=== PATIENT | female | born 1955 | race Hispanic/Latino ===

== ENCOUNTER 2018-05-07 20:22 | Observation (INO) | payer MEDICAID ==
--- NOTE | 2018-05-07 21:13 | ED PDOC ---
Arrival/HPI - General Time Seen by Provider: 05/07/18 20:27 Historian: Patient - History of Present Illness Narrative History of Present Illness (Text): 05/07/18 20:45 Nicole Elizalde is a 62 year old female, whose past medical history includes hypertension, who presents to the Emergency Department complaining of episodes of dizziness and near-syncope for the past day. Patient also reports fleeting left-sided chest discomfort, no radiation to arm or back. Patient also denies any headache, neck pain, back pain, visual disturbance, fever, chills, shortness of breath, or any other complaints. Symptom Onset: Gradual Symptom Course: Unchanged Activities at Onset: Light Context: Home Past Medical History - Provider Review Nursing Documentation Reviewed: Yes - Tetanus Immunization Tetanus Immunization: Unknown - Cardiac Hx Cardiac Disorders: Yes Hx Hypertension: Yes - Pulmonary Hx Respiratory Disorders: No - Neurological Hx Neurological Disorder: No Hx Paralysis: No - HEENT Hx HEENT Disorder: No - Renal Hx Renal Disorder: No - Endocrine/Metabolic Hx Endocrine Disorders: No - Hematological/Oncological Hx Blood Disorders: No Hx Blood Transfusions: No Hx Blood Transfusion Reaction: No - Integumentary Hx Dermatological Disorder: No - Musculoskeletal/Rheumatological Hx Musculoskeletal Disorders: Yes Hx Arthritis: Yes (mainly in the spine) Hx Osteoporosis: Yes - Gastrointestinal Hx Gastrointestinal Disorders: Yes Hx Gastroesophageal Reflux: Yes - Psychiatric Hx Anxiety: Yes Hx Substance Use: No - Surgical History Hx Hysterectomy: Yes (1993) Hx Tubal Ligation: Yes - Anesthesia Hx Anesthesia: Yes Hx Anesthesia Reactions: No Hx Malignant Hyperthermia: No - Suicidal Assessment Feels Threatened In Home Enviroment: No Family/Social History - Physician Review Nursing Documentation Reviewed: Yes Family/Social History: Unknown Family HX Smoking Status: Heavy Smoker > 10 Cigarettes Daily Hx Alcohol Use: Yes (a beer) Hx Substance Use: No Hx Substance Use Treatment: No Allergies/Home Meds Allergies/Adverse Reactions: Allergies penicillin G Allergy (Mild, Verified 05/07/18 20:44) RASH Home Medications: Home Meds Medication Instructions Recorded Confirmed ALPRAZolam [Xanax] 0.25 mg PO DAILY 07/22/16 05/07/18 Albuterol HFA [Ventolin HFA 90 2 puff IH [id number] PRN 07/22/16 05/07/18 mcg/actuation (8 g)] Atorvastatin [Lipitor] 10 mg PO DAILY 07/22/16 05/07/18 Lisinopril [Prinivil] 10 mg PO DAILY 07/22/16 05/07/18 Aspirin [Aspirin] 81 mg PO DAILY 05/07/18 05/07/18 Review of Systems - Physician Review All systems were reviewed & negative as marked: Yes - Review of Systems Constitutional: Normal. absent: Fevers Eyes: Normal ENT: Normal Respiratory: Normal. absent: SOB, Cough Cardiovascular: Chest Pain, Other (+near-syncope) Gastrointestinal: Normal. absent: Abdominal Pain, Diarrhea, Nausea, Vomiting Genitourinary Female: Normal. absent: Dysuria, Frequency, Hematuria, Urine Output Changes Musculoskeletal: Normal. absent: Back Pain, Neck Pain Skin: Normal. absent: Rash Neurological: Dizziness. absent: Headache Endocrine: Normal Hemo/Lymphatic: Normal Psychiatric: Normal Physical Exam Vital Signs Reviewed: Yes Vital Signs Temp Pulse Resp BP Pulse Ox 05/07/18 22:44 98 F 63 18 152/73 H 96 05/07/18 20:49 97.8 F 62 18 150/72 97 Temperature: Afebrile Blood Pressure: Normal Pulse: Regular Respiratory Rate: Normal Appearance: Positive for: Well-Appearing, Non-Toxic, Comfortable Pain Distress: None Mental Status: Positive for: Alert and Oriented X 3 - Systems Exam Head: Present: Atraumatic, Normocephalic Pupils: Present: PERRL Extroacular Muscles: Present: EOMI Conjunctiva: Present: Normal Mouth: Present: Moist Mucous Membranes Neck: Present: Normal Range of Motion. No: Meningeal Signs, MIDLINE TENDERNESS , Paraspinal Tenderness Respiratory/Chest: Present: Clear to Auscultation, Good Air Exchange. No: Respiratory Distress, Accessory Muscle Use Cardiovascular: Present: Regular Rate and Rhythm, Normal S1, S2. No: Murmurs Abdomen: No: Tenderness, Distention, Peritoneal Signs Back: Present: Normal Inspection. No: CVA Tenderness, Midline Tenderness, Paraspinal Tenderness Upper Extremity: Present: Normal Inspection. No: Cyanosis, Edema Lower Extremity: Present: Normal Inspection. No: Edema Neurological: Present: GCS=15, CN II-XII Intact, Speech Normal, Motor Func Grossly Intact, Normal Sensory Function, Normal Cerebellar Funct Skin: Present: Warm, Dry, Normal Color. No: Rashes Psychiatric: Present: Alert, Oriented x 3, Normal Insight, Normal Concentration Medical Decision Making ED Course and Treatment: 05/07/18 20:45 Impression: 62 year old female complaining of dizziness, near-syncope, and occasional chest discomfort Plan: -- CT Head w/o contrast -- EKG -- CXR -- Labs, cardiac enzymes -- Reassess and disposition Prior Visits: Notes and results from previous visits were reviewed. Progress Notes: Reviewed EKG, sinus bradycardia at [address]-segment elevations or depressions, no T-wave inversions, normal intervals. 05/07/18 23:02 Chest X-ray reviewed, shows no acute processes. 05/07/18 23:11 Case discussed with medical equipment technician information security, who is aware and agrees with plan. 05/07/18 23:[address] Mccarthy, who is aware and agrees with plan. Accepts pt in to hospitalist service. - Lab Interpretations Lab Results: 05/07/18 21:17 05/07/18 21:17 Lab Results 05/07/18 21:17: WBC 12.0 H D, RBC 4.30, Hgb 12.9, Hct 37.5, MCV 87.2, MCH 30.0, MCHC 34.4, RDW 14.1, Plt Count 283, MPV 11.6 H 05/07/18 21:17: Sodium 135, Potassium 4.0, Chloride 101, Carbon Dioxide 24, Anion Gap 14, BUN 9, Creatinine 0.9, Est GFR ( Amer) > 60, Est GFR (Non- Af Amer) > 60, Random Glucose 98, Calcium 9.3, Total Bilirubin 0.4, AST 26, ALT 19, Alkaline Phosphatase 58, Lactate Dehydrogenase 376, Total Creatine Kinase 259 H, CK-MB (CK-2) 0.5, CK-MB (CK-2) % Cancelled, Troponin I < 0.01, Total Protein 7.0, Albumin 4.2, Globulin 2.8, Albumin/Globulin Ratio 1.5 05/07/18 21:17: PT 10.7, INR 0.94, APTT 31.0 - RAD Interpretation Radiology Orders: 05/07/18 20:47 HEAD W/O CONTRAST [CT] Stat CHEST ONE VIEW [RAD] Stat - EKG Interpretation Interpreted by ED Physician: Yes Type: 12 lead EKG - Scribe Statement The provider has reviewed the documentation as recorded by the Scribe Ariana Acevedo All medical record entries made by the Scribe were at my direction and personally dictated by me. I have reviewed the chart and agree that the record accurately reflects my personal performance of the history, physical exam, medical decision making, and the department course for this patient. I have also personally directed, reviewed, and agree with the discharge instructions and disposition. Disposition/Present on Arrival - Present on Arrival Any Indicators Present on Arrival: No History of DVT/PE: No History of Uncontrolled Diabetes: No Urinary Catheter: No History Surgical Site Infection Following: None - Disposition Have Diagnosis and Disposition been Completed?: Yes Diagnosis: Chest pain, Dizziness, Near syncope Disposition: HOSPITALIZED Disposition Time: 23:21 Patient Plan: Observation Condition: STABLE Discharge Instructions (ExitCare): Chest Pain (ED) Referrals: Rodrigo Chilel APN [Primary Care Provider] - Follow up with primary
[2018-05-07 21:42] LABS: HEMOGLOBIN 12.9 g/dL (12.0-16.0); MEAN CELL VOLUME 87.2 fl (80.0-105.0); MEAN CORPUSCULAR HGB CONC 34.4 g/dl (31.0-37.0); MEAN PLATELET VOLUME 11.6 fl (7.0-11.0); RBC 4.3 10^6/uL (3.5-6.1); RED CELL DISTRIBUTION WIDTH 14.1 % (11.5-14.5)
[2018-05-07 21:45] LABS: ALB/GLOB RATIO 1.5 (1.1-1.8); ALBUMIN 4.2 g/dL (3.0-4.8); ALT/SGPT 19 U/L (7-56); AST/SGOT 26 U/L (14-36); BLOOD UREA NITROGEN 9 mg/dL (7-21); CALCIUM 9.3 mg/dL (8.4-10.5); GFR AFRICAN-AMERICAN > 60; GFR NON-AFRICAN AMERICAN > 60
[2018-05-07 21:57] LABS: TROPONIN I < 0.01 ng/mL
[2018-05-07 22:06] LABS: CK-MB 0.5 ng/mL (0.0-3.6)
[2018-05-07 22:21] LABS: INR 0.94 (0.93-1.08); PROTHROMBIN TIME 10.7 SECONDS (9.4-12.5)
[2018-05-08 01:08] VITALS: BMI 23.1
--- NOTE | 2018-05-08 02:04 | CP.PCM.HP ---
<Haim Pendleton - Last Filed: 05/08/18 02:55> History of Present Illness - History of Present Illness History of Present Illness: Haim Pendleton DO - PGY1 Internal Medicine [employer] - Medicine H+P note: 62F w/ a PMH of HTN, COPD, OA, HLD, presents to ED on 05/07 w/ CC of fleeting L sided CP, and near syncope. She stated this was her first significant episode of near syncope and has been somewhat progressing over the past month. Today when she bent down she stated that her light headedness worsened; and was improved w/ rest. The reported episodes only occur with postural changes. She states that over the past 24Hr she's been having intermittent episodes of light headedness, and that the dizziness extinguishes when she closes her eyes. She denies any LOC or any falls. There has also been associated L sided CP with the episode, and the pain was described as a pins and needles sensation w/ no associated diaphoresis, jaw claudication, L sided arm/ neck pain. She rated the chest pain as a 3/10 and it is no longer present at the time of admission. Patient however did complain of some associated palpitations. Remainder of ROS is negative for any F, Chills abd pain, N/V/D/C at this time. Previously admitted in 2016 for CC of CP; EKG read as wnl; Echo reported as normal EF 65-70% w/ trace MR/TR; troponins negative; Pt. reported that she follows up out pt. w/ warrant server Dr. Tierney and has recently performed duplex carotid US however she does not know the results of the study. In the ED: Trops negative, EKG performed prelim read only significant for sinus jaime at 59bpm; no ST changees; T wave inversions; intervals wnl CXR and CT head performed; pending read; Vitals stable, Labs: Mild leukocytosis (12), Mild CK elevation - 259, A1C 5.9 [facility] : [facility] PMD: Dr. Chilel PMH: HTN, HLD, COPD, OA PSH: Hysterectomy 2/2 endometriosis Home Rx: [id number], Albuterol Inhaler, Lisnopril 10 QD, Lipitor 10 QD, Xanax 0.25 QDPRN FamHx: Heart disease/ CAD, DM, HTN - both sides of immediate family Social Hx: Current smoker w/ 30 pack year hx, EtOH+ every weekend 4-5 beers, remote hx daily EtOH; Hx Cocaine use -stopped 6 years ago. Lives at home w/ son independent w /ADLs and ambulation. Present on Admission - Present on Admission Any Indicators Present on Admission: No Review of Systems - Constitutional Constitutional: absent: Chills, Fever, Headache - EENT Eyes: absent: Blurred Vision, Change in Vision - Cardiovascular Cardiovascular: Chest Pain, Palpitations. absent: Claudication, Diaphoresis, Pain Radiating to Arm/Neck/Jaw - Respiratory Respiratory: absent: Cough, Dyspnea - Gastrointestinal Gastrointestinal: absent: Abdominal Pain, Diarrhea, Nausea, Vomiting - Genitourinary Genitourinary: absent: Difficulty Urinating, Hematuria - Integumentary Integumentary: absent: Swelling, Unusual Bruising - Neurological Neurological: Dizziness. absent: Numbness, Focal Weakness, Headaches, Paresthesias, Syncope Additional comments: Light headed ness/ near syncope; dizziness - Psychiatric Psychiatric: absent: Behavioral Changes, Confusion Past Patient History - Tetanus Immunizations Tetanus Immunization: Unknown - Past Social History Smoking Status: Heavy Smoker > 10 Cigarettes Daily Home Situation {Lives}: With Family - CARDIAC Hx Cardiac Disorders: Yes Hx Hypercholesterolemia: Yes Hx Hypertension: Yes - PULMONARY Hx Respiratory Disorders: Yes Hx Bronchitis: Yes Hx Chronic Obstructive Pulmonary Disease (COPD): Yes - NEUROLOGICAL Hx Neurological Disorder: No - HEENT Hx HEENT Problems: Yes (wears glasses) - RENAL Hx Chronic Kidney Disease: No - ENDOCRINE/METABOLIC Hx Endocrine Disorders: No - HEMATOLOGICAL/ONCOLOGICAL Hx Blood Disorders: No Hx Shingles: Yes (March 2017) - INTEGUMENTARY Hx Dermatological Problems: No - MUSCULOSKELETAL/RHEUMATOLOGICAL Hx Musculoskeletal Disorders: Yes Hx Arthritis: Yes Hx Falls: No Hx Fractures: Yes (L foot) Hx Osteoarthritis: Yes Hx Osteoporosis: Yes - GASTROINTESTINAL Hx Gastrointestinal Disorders: Yes (recent EGD/colonoscopy- "blockage") Hx Gastroesophageal Reflux: Yes - GENITOURINARY/GYNECOLOGICAL Hx Genitourinary Disorders: No Hx Urinary Tract Infection: Yes - PSYCHIATRIC Hx Psychophysiologic Disorder: Yes Hx Anxiety: Yes Hx Depression: Yes Hx Substance Use: Yes (cocaine-quit 6 yr ago) Other/Comment: etoh, cocaine abuse - SURGICAL HISTORY Hx Surgeries: Yes Hx Hysterectomy: Yes (1993) Other/Comment: tubal ligation - ANESTHESIA Hx Anesthesia: Yes Hx Anesthesia Reactions: No Hx Malignant Hyperthermia: No Meds Allergies/Adverse Reactions: Allergies Allergy/AdvReac Type Severity Reaction Status Date / Time penicillin G Allergy Mild RASH Verified 05/07/18 20:44 Physical Exam - Constitutional Appears: Well, Non-toxic, No Acute Distress - Head Exam Head Exam: ATRAUMATIC, NORMOCEPHALIC - Eye Exam Eye Exam: EOMI, PERRL. absent: Scleral icterus - ENT Exam ENT Exam: Mucous Membranes Moist, Normal Oropharynx - Neck Exam Additional comments: Mild L sided carotid bruit appreciated - Respiratory Exam Respiratory Exam: Clear to Auscultation Bilateral, NORMAL BREATHING PATTERN. absent: Rhonchi, Wheezes - Cardiovascular Exam Cardiovascular Exam: RRR, +S1, +S2. absent: Systolic Murmur - GI/Abdominal Exam GI & Abdominal Exam: Soft. absent: Normal Bowel Sounds, Tenderness - Extremities Exam Extremities exam: Positive for: pedal pulses present. Negative for: tenderness Additional comments: Extremities warm; distal pulses difficult to appreciate - Back Exam Back exam: absent: CVA tenderness (L), CVA tenderness (R) - Neurological Exam Neurological exam: Alert, CN II-XII Intact, Oriented x3 - Psychiatric Exam Psychiatric exam: Normal Affect, Normal Mood - Skin Skin Exam: Dry, Intact, Warm Results - Vital Signs Recent Vital Signs: Last Vital Signs Temp 98.1 F 05/08/18 00:52 Pulse 60 05/08/18 00:52 Resp 20 05/08/18 00:52 BP 151/78 H 05/08/18 00:52 Pulse Ox 99 05/08/18 00:25 - Labs Result Diagrams: 05/07/18 21:17 05/07/18 21:17 Assessment & Plan - Assessment and Plan (Free Text) Assessment: 62F w/ PMH of HTN, COPD, HLD, presenting w/ CC of near syncopal episodes, and atypical chest pain. Plan: Pre-Syncopal Episode Cardiogenic vs Neurologic vs. Vasovagal/ Reflex New onset episodes of light headedness w/ associated chest pain/ palpitations; and carotid bruit ED EKG only remarkable for bradycardia; no arrhythmia - pend official read Telemonitoring Echocardiogram AM EKG Carotid Duplex US Orthostatics CT Head read pending Cardiology Consulted appreciate recommendations Atypical Chest Pain Pt w/ complaints of L sided chest pain in ED 1st Trop negative; No ST/ T wave changes on EKG in ED AM EKG AM Trop; Start ASA81 QD Lipid Panel A1C - 5.9 Cardiology Consulted appreciate recommendations Leukocytosis Upper limit normal. Pt. afebrile, VSS; Continue to monitor Hx HTN Cont home lisinopril 10 QD Hx COPD No wheezes present on admission; history of minimal inhaler use Can start albuterol PRN if symptomatic Hx HLD Cont home lipitor 10 QD Hx Anxiety disorder Cont home xanax 0.25 QD GI / DVT PPX: Famotidine/ Protonix 40 Dispo: Admit to telemonitoring for further workup of pre-syncopal etiology and ACS R/O Patient seen, examined, and discussed w/ attending physician Dr. Mccarthy at bedside in ED Haim Pendleton DO - PGY1 Internal Medicine [employer] - Pager [phone] - Date & Time Date: 05/08/18 Time: 03:06 <Morelia Mccarthy - Last Filed: 05/08/18 06:44> Results - Vital Signs Recent Vital Signs: Last Vital Signs Temp 98.6 F 05/08/18 06:00 Pulse 58 L 05/08/18 06:00 Resp 20 05/08/18 06:00 BP 108/65 05/08/18 06:00 Pulse Ox 97 05/08/18 06:00 - Labs Result Diagrams: 05/08/18 05:20 05/07/18 21:17 Labs: Laboratory Results - last 24 hr 05/08/18 05:20 WBC 10.3 RBC 4.49 Hgb 13.5 Hct 39.4 MCV 87.8 MCH 30.1 MCHC 34.3 RDW 14.1 Plt Count 286 MPV 11.7 H Gran % 47.9 L Lymph % (Auto) 41.5 H [place] % (Auto) 8.6 H Eos % (Auto) 1.8 Baso % (Auto) 0.2 Gran # 4.94 Lymph # (Auto) 4.3 H [place] # (Auto) 0.9 H Eos # (Auto) 0.2 Baso # (Auto) 0.02 Attending/Attestation - Attestation I have personally seen and examined this patient.: Yes I have fully participated in the care of the patient.: Yes I have reviewed all pertinent clinical information: Yes Notes (Text): 05/08/18 06:43 Patient was seen when she was in the ER. Agree with history, physical examination, assessment and plan.
[2018-05-08 06:24] LABS: BASO # 0.02 K/mm3 (0.0-2.0); BASO % 0.2 % (0.0-3.0); EOS # 0.2 (0.0-0.7); EOS % 1.8 % (1.5-5.0); GRAN # 4.94 (1.4-6.5); GRAN % 47.9 % (50.0-68.0); HEMOGLOBIN 13.5 g/dL (12.0-16.0); LYMPH # 4.3 (1.2-3.4); LYMPH % 41.5 % (22.0-35.0); MEAN CELL VOLUME 87.8 fl (80.0-105.0); MEAN CORPUSCULAR HEMOGLOBIN 30.1 pg (25.0-35.0); MEAN CORPUSCULAR HGB CONC 34.3 g/dl (31.0-37.0); MEAN PLATELET VOLUME 11.7 fl (7.0-11.0); MONO # 0.9 (0.1-0.6); MONO % 8.6 % (1.0-6.0); RBC 4.49 10^6/uL (3.5-6.1); RED CELL DISTRIBUTION WIDTH 14.1 % (11.5-14.5); WHITE BLOOD COUNT 10.3 10^3/ul (4.5-11.0)
[2018-05-08 06:56] LABS: TROPONIN I < 0.01 ng/mL
[2018-05-08 07:09] LABS: ALB/GLOB RATIO 1.5 (1.1-1.8); ALBUMIN 3.8 g/dL (3.0-4.8); ALT/SGPT 22 U/L (7-56); AST/SGOT 18 U/L (14-36); BLOOD UREA NITROGEN 9 mg/dL (7-21); CALCIUM 9.4 mg/dL (8.4-10.5); GFR AFRICAN-AMERICAN > 60; GFR NON-AFRICAN AMERICAN > 60
[2018-05-08 07:45] LABS: HDL CHOLESTEROL 49 mg/dL (29-60)
[2018-05-08 07:56] LABS: LDL CHOLESTEROL 71 mg/dL (0-129)
--- NOTE | 2018-05-08 08:46 | RAD ---
Date of service: 05/07/2018 PROCEDURE: CHEST RADIOGRAPH, 1 VIEW HISTORY: chest pain COMPARISON: 07/22/2016 FINDINGS: LUNGS: Clear. PLEURA: No pneumothorax or pleural fluid seen. CARDIOVASCULAR: Normal. OSSEOUS STRUCTURES: No significant abnormalities. VISUALIZED UPPER ABDOMEN: Normal. OTHER FINDINGS: None. IMPRESSION: No active disease.
[2018-05-08] MEDS: Enoxaparin 40 mg Syringe SC SCH (09:06)
[2018-05-08] MEDS ORDERED: Albuterol 0.083% Inhal Sol (2.5 mg/3 mL) UD IH PRN (09:10)
--- NOTE | 2018-05-08 09:29 | CT ---
Date of service: 05/07/2018 PROCEDURE: CT HEAD WITHOUT CONTRAST. HISTORY: dizzy/near syncope COMPARISON: None available. TECHNIQUE: Axial computed tomography images were obtained through the head/brain without intravenous contrast. Radiation dose: Total exam DLP = 861.21 mGy-cm. This CT exam was performed using one or more of the following dose reduction techniques: Automated exposure control, adjustment of the mA and/or kV according to patient size, and/or use of iterative reconstruction technique. FINDINGS: HEMORRHAGE: No acute parenchymal, subarachnoid or extra-axial hemorrhage. BRAIN: No evidence of large acute infarct. Minor chronic periventricular white matter ischemic changes are felt be present. There is a elliptical shaped low-attenuation focus inferior lateral margin right basal ganglia consistent with a dilated perivascular space. Very mild central volume loss. Minor vascular calcifications both carotid siphons VENTRICLES: No obstructive hydrocephalus. CALVARIUM: Unremarkable. PARANASAL SINUSES: Unremarkable as visualized. No significant inflammatory changes. MASTOID AIR CELLS: Unremarkable as visualized. No inflammatory changes. OTHER FINDINGS: None. IMPRESSION: No acute intracranial hemorrhage. Minor chronic periventricular white matter ischemic changes. Minor central volume loss. Dilated perivascular space right inferior lateral basal ganglia.
[2018-05-08] MEDS: Cholecalciferol 1,000 INTLU TAB PO SCH (09:35)
--- NOTE | 2018-05-08 10:15 | CARD ---
APPROVED REPORT Date of service: 05/07/2018 EKG Measurement Heart [id number] <Conclusion> Poor data quality, interpretation may be adversely affected Sinus bradycardia Otherwise normal ECG
--- NOTE | 2018-05-08 11:11 | CARD ---
APPROVED REPORT Date of service: 05/08/2018 EKG Measurement Heart [id number] <Conclusion> Sinus bradycardia Otherwise normal ECG
--- NOTE | 2018-05-08 11:39 | CON ---
DATE: 05/08/2018 INDICATIONS: Chest pain, near syncope. HISTORY OF PRESENT ILLNESS: This is a 62-year-old woman, smoker with COPD, who came to the emergency room with increasing dizziness, lightheadedness, which is somewhat positional, especially when bending over. There has been some left-sided chest discomfort on and off also. She does not, however, describe typical exertional chest pain. There was chronic dyspnea on exertion. She is a smoker. There is no orthopnea, PND, syncope, falls, palpitation, edema, claudication, fever, chills, cough, sputum production, hemoptysis, abdominal pain, nausea, vomiting, diarrhea, constipation, melena. PAST MEDICAL HISTORY: Notable for COPD. She is a current smoker. She has a history of hypertension, hyperlipidemia, discogenic disease, anxiety. There is a history of cocaine use in the past, but not currently. There is no history of rheumatic fever or myocardial infarction, arrhythmia, diabetes, stroke, TIA or gout. MEDICATIONS AT THE TIME OF ADMISSION: Include aspirin, Lipitor, lisinopril, Ventolin, vitamin D, Xanax. ALLERGIES: SHE NOTES AN ALLERGY TO PENICILLIN. SOCIAL HISTORY: She lives at home. She is ambulatory. She still smokes about a pack of cigarettes per day. She drinks beer on the weekends. She does not use drugs currently. FAMILY HISTORY: Positive for heart disease. REVIEW OF SYSTEMS: Ten-point review of systems is otherwise unremarkable except as noted above. PHYSICAL EXAMINATION: GENERAL: She is a well-developed woman, lying in bed on telemetry, in no acute distress. VITAL SIGNS: Notable for sinus rhythm to sinus tachycardia, currently 58 beats per minute. She is afebrile, blood pressure 108/65, respirations 18-20, O2 sat 96-99% on room air. HEENT: Reveals no neck vein distention, thyromegaly, carotid bruit. Mucous membranes moist. Conjunctivae pink. NECK: Supple. LUNGS: Lung kruger clear. HEART: Examination of the heart revealed normal first and second heart sounds without murmur, gallop, rub or click. ABDOMEN: Soft. Bowel sounds present. No mass, organomegaly, tenderness, rebound, guarding. No CVA tenderness. No palpable abdominal aortic aneurysm. EXTREMITIES: Revealed no cyanosis, clubbing or edema. NEUROLOGICAL: She is awake, alert and oriented. SKIN: Warm and dry. No rash or cellulitis. PSYCHIATRIC: Normal as to mood and affect. LABORATORY DATA AND IMAGING: EKG demonstrated sinus bradycardia at 56 beats per minute. There were no acute changes noted. A chest x-ray is a portable study. No active disease. White count 12,000. Repeat 10,300. Hemoglobin, hematocrit, platelet count unremarkable. PT, INR, PTT normal. Electrolytes: BUN, creatinine, blood sugars, LFTs all unremarkable. Two troponins are negative. Total cholesterol 140, triglycerides 90, LDL 71, HDL 49, TSH is normal. IMPRESSION: Nicole Elizalde is a 62-year-old woman smoker, who complains of short history of dizziness and lightheadedness, especially bending over with occasional feeling as if she might pass out and fleeting left-sided chest discomforts on and off for several days prior to admission. She is admitted to telemetry. Two troponins are negative. Her initial EKG was benign except for sinus bradycardia. I will repeat her EKG this morning. We should check postural vital signs. I will check an echocardiogram. I have advised to stop smoking. She seems willing to try with a nicotine patch. She will have a neurologic evaluation. We will continue Lipitor, lisinopril, Xanax as needed and Pepcid. She got Lovenox. A carotid ultrasound is ordered. A CT scan of the head is ordered. If she has no further chest pain or dizziness, an early discharge can be anticipated with outpatient followup with her regular physicians, and the rn vascular(s) associated with her group. Herman Noonan MD [facility]
--- NOTE | 2018-05-08 13:38 | CP.PCM.CON ---
History of Present Illness - History of Present Illness History of Present Illness: Anastasia Leslie, PGY 1 [employer], Neurology Consult Note Patient is a 62 yo female with PMH hypertension, hypercholesterolemia, anxiety, tobacco abuse presenting with chief complaint of dizziness with associated chest pain. She states that she has had a similar episode of dizziness approximately one month prior. At that time, her symptoms self resolved and she did not experience any chest pain. She states that yesterday she was running errands, when she started feeling lightheaded in addition to feeling like the room was spinning around her. During this episode, she also experienced palpitations. She denies any loss of consciousness, headache, changes in hearing or vision. Currently, she states her dizziness has resolved. 12 point ROS was benign. Review of Systems - Neurological Neurological: Dizziness. absent: Abnormal Gait, Abnormal Hearing, Confusion, Numbness, Headaches, Sensory Deficit, Syncope Past Patient History - Tetanus Immunizations Tetanus Immunization: Unknown - Past Social History Smoking Status: Heavy Smoker > 10 Cigarettes Daily Home Situation {Lives}: With Family - CARDIAC Hx Cardiac Disorders: Yes Hx Hypercholesterolemia: Yes Hx Hypertension: Yes - PULMONARY Hx Respiratory Disorders: Yes Hx Bronchitis: Yes Hx Chronic Obstructive Pulmonary Disease (COPD): Yes - NEUROLOGICAL Hx Neurological Disorder: No - HEENT Hx HEENT Problems: Yes (wears glasses) - RENAL Hx Chronic Kidney Disease: No - ENDOCRINE/METABOLIC Hx Endocrine Disorders: No - HEMATOLOGICAL/ONCOLOGICAL Hx Blood Disorders: No Hx Shingles: Yes (March 2017) - INTEGUMENTARY Hx Dermatological Problems: No - MUSCULOSKELETAL/RHEUMATOLOGICAL Hx Musculoskeletal Disorders: Yes Hx Arthritis: Yes Hx Falls: No Hx Fractures: Yes (L foot) Hx Osteoarthritis: Yes Hx Osteoporosis: Yes - GASTROINTESTINAL Hx Gastrointestinal Disorders: Yes (recent EGD/colonoscopy- "blockage") Hx Gastroesophageal Reflux: Yes - GENITOURINARY/GYNECOLOGICAL Hx Genitourinary Disorders: No Hx Urinary Tract Infection: Yes - PSYCHIATRIC Hx Psychophysiologic Disorder: Yes Hx Anxiety: Yes Hx Depression: Yes Hx Substance Use: Yes (cocaine-quit 6 yr ago) Other/Comment: etoh, cocaine abuse - SURGICAL HISTORY Hx Surgeries: Yes Hx Hysterectomy: Yes (1993) Other/Comment: tubal ligation - ANESTHESIA Hx Anesthesia: Yes Hx Anesthesia Reactions: No Hx Malignant Hyperthermia: No Meds Allergies/Adverse Reactions: Allergies Allergy/AdvReac Type Severity Reaction Status Date / Time penicillin G Allergy Mild RASH Verified 05/07/18 20:44 - Medications Medications: Current Medications Albuterol Sulfate (Albuterol 0.083% Inhal Cleo (2.5 Mg/3 Ml) Ud) 2 mg IH [id number] PRN PRN Reason: Shortness of Breath Alprazolam (Xanax) 0.25 mg PO DAILY PRN; Protocol PRN Reason: Anxiety Stop: 05/15/18 10:01 Aspirin (Aspirin Chewable) 81 mg PO DAILY [facility] Last Admin: 05/08/18 09:35 Dose: 81 mg Atorvastatin Calcium (Lipitor) 10 mg PO DIN [facility] Cholecalciferol (Vitamin D) 1,000 intlu PO DAILY [facility] Last Admin: 05/08/18 09:35 Dose: 1,000 intlu Enoxaparin Sodium (Lovenox) 40 mg SC DAILY [facility] PRN Reason: Protocol Last Admin: 05/08/18 09:06 Dose: 40 mg Famotidine (Pepcid) 40 mg PO HS [facility] Lisinopril (Zestril) 10 mg PO DAILY [facility] Last Admin: 05/08/18 09:08 Dose: 10 mg Nicotine (Nicoderm Cq) 1 patch TD DAILY [facility] Last Admin: 05/08/18 09:35 Dose: 1 patch Physical Exam - Constitutional Appears: Non-toxic, No Acute Distress - Head Exam Head Exam: ATRAUMATIC, NORMOCEPHALIC - Eye Exam Eye Exam: EOMI, Normal appearance, PERRL - ENT Exam ENT Exam: Mucous Membranes Moist, Normal Exam - Neck Exam Neck exam: Positive for: Normal Inspection - Respiratory Exam Respiratory Exam: Clear to Auscultation Bilateral, NORMAL BREATHING PATTERN - Cardiovascular Exam Cardiovascular Exam: REGULAR RHYTHM, +S1, +S2 - GI/Abdominal Exam GI & Abdominal Exam: Normal Bowel Sounds, Soft. absent: Distended, Firm, Rigid - Extremities Exam Extremities exam: Positive for: normal inspection - Back Exam Back exam: NORMAL INSPECTION - Neurological Exam Neurological exam: Alert, CN II-XII Intact, Normal Gait, Oriented x3 Additional comments: Cranial nerves II-XII intact. Coordination intact. No dysmetria. Gait observed normal. Endpoint gaze nystagmus towards the left side. Muscle strength +5/5 in all four extremities. - Psychiatric Exam Psychiatric exam: Normal Affect, Normal Mood - Skin Skin Exam: Dry, Intact, Normal Color, Warm Results - Vital Signs Recent Vital Signs: Last Vital Signs Temp 98 F 05/08/18 12:00 Pulse 57 L 05/08/18 12:00 Resp 18 05/08/18 12:00 BP 140/66 05/08/18 12:00 Pulse Ox 97 05/08/18 06:00 - Labs Result Diagrams: 05/08/18 05:20 05/08/18 05:20 Labs: Laboratory Results - last 24 hr 05/08/18 05/08/18 05/08/18 05:20 05:20 05:20 WBC 10.3 RBC 4.49 Hgb 13.5 Hct 39.4 MCV 87.8 MCH 30.1 MCHC 34.3 RDW 14.1 Plt Count 286 MPV 11.7 H Gran % 47.9 L Lymph % (Auto) 41.5 H Cheatham % (Auto) 8.6 H Eos % (Auto) 1.8 Baso % (Auto) 0.2 Gran # 4.94 Lymph # (Auto) 4.3 H [place] # (Auto) 0.9 H Eos # (Auto) 0.2 Baso # (Auto) 0.02 Sodium 138 Potassium 4.2 Chloride 104 Carbon Dioxide 23 Anion Gap 15 BUN 9 Creatinine 0.8 Est GFR ( Amer) > 60 Est GFR (Non-Af Amer) > 60 Random Glucose 93 Hemoglobin A1c Calcium 9.4 Phosphorus 4.8 H Magnesium 2.0 Total Bilirubin 0.3 AST 18 ALT 22 Alkaline Phosphatase 58 Troponin I < 0.01 Total Protein 6.3 Albumin 3.8 Globulin 2.5 Albumin/Globulin Ratio 1.5 Triglycerides Cholesterol LDL Cholesterol Direct HDL Cholesterol TSH 3rd Generation 2.77 05/08/18 05/08/18 05/08/18 05:30 05:30 11:15 WBC RBC Hgb Hct MCV MCH MCHC RDW Plt Count MPV Gran % Lymph % (Auto) [place] % (Auto) Eos % (Auto) Baso % (Auto) Gran # Lymph # (Auto) [place] # (Auto) Eos # (Auto) Baso # (Auto) Sodium Potassium Chloride Carbon Dioxide Anion Gap BUN Creatinine Est GFR ( Amer) Est GFR (Non-Af Amer) Random Glucose Hemoglobin A1c 5.9 Calcium Phosphorus Magnesium Total Bilirubin AST ALT Alkaline Phosphatase Troponin I < 0.01 Total Protein Albumin Globulin Albumin/Globulin Ratio Triglycerides 90 Cholesterol 140 LDL Cholesterol Direct 71 HDL Cholesterol 49 TSH 3rd Generation Assessment & Plan - Assessment and Plan (Free Text) Assessment: Patient is a 62 yo female with PMH hypertension, hypercholesterolemia, anxiety, tobacco abuse presenting with chief complaint of dizziness with associated chest pain. Plan: Pre-syncopal episode - Etiology vasovagal syncope vs. vertebrobasilar insufficiency - Head CT shows no acute intracranial hemorrhage. Minor chronic periventricular white matter ischemic changes. Minor central volume loss. Dilated perivascular space right inferior lateral basal ganglia. - Head CTA unremarkable - Neck CTA shows calcified plaques in carotid arteries without stenosis - Follow up ECHO - Smoking cessation counseling provided - Further recommendations per Dr. Ku Case reviewed and plan approved by attending physician Dr. Elmira Leslie PGY-1
--- NOTE | 2018-05-08 13:49 | CT ---
Date of service: 05/08/2018 PROCEDURE: CT Angiography of the neck with contrast HISTORY: dizziness COMPARISON: None available. TECHNIQUE: Contiguous axial images of the neck were obtained from the level of the skull-base to the superior mediastinum in the arteriographic phase of enhancement. Coronal and sagittal reformats or also generated. IV contrast dose: 150 cc of Omni 350 Radiation Dose - DLP: 467 mGy-cm This CT exam was performed using one or more of the following dose reduction techniques: Automated exposure control, adjustment of the mA and/or kV according to patient size, and/or use of iterative reconstruction technique. FINDINGS: RIGHT CAROTID ARTERIES: Common Carotid Artery: Normal. Carotid Bifurcation: Calcified plaques without stenosis Internal Carotid Artery:Normal. External Carotid Artery (proximal branches): Normal. LEFT CAROTID ARTERIES: Common Carotid Artery: Normal. Carotid Bifurcation: Calcified plaques without stenosis Internal Carotid Artery:Normal. External Carotid Artery (proximal branches): Normal. VERTEBRAL ARTERIES: Right Vertebral Artery: Normal. Left Vertebral Artery: Normal. OTHER FINDINGS: None. IMPRESSION: Small calcified plaques in the carotid arteries without stenosis PROCEDURE: CT Angiography of the Brain. HISTORY: dizziness COMPARISON: None available. TECHNIQUE: CT angiography of the intracranial arteries was performed. Coronal and sagittal maximum intensity projection reformated images were generated. This CT exam was performed using one or more of the following dose reduction techniques: Automated exposure control, adjustment of the mA and/or kV according to patient size, and/or use of iterative reconstruction technique. FINDINGS: INTERNAL CEREBRAL ARTERIES: Unremarkable. The skull base, petrous, cavernous and supraclinoid segments are bilaterally widely patent. ANTERIOR CEREBRAL ARTERIES: Unremarkable. A1 and A2 segments are widely patent. Smaller distal branches unremarkable, as visualized. MIDDLE CEREBRAL ARTERIES: Unremarkable. M1 and M2 segments are widely patent. Perisylvian branches grossly symmetric. POSTERIOR CIRCULATION: Basilar Artery: Unremarkable. Distal Vertebral Arteries: Unremarkable. Posterior Cerebral Arteries: Unremarkable. Posterior Inferior Cerebellar Arteries: Unremarkable. ANEURYSM/ VASCULAR MALFORMATIONS: None. OTHER FINDINGS: None. IMPRESSION: Unremarkable CT Angiography of the Brain.
[2018-05-08 17:36] VITALS: RESP 20
--- NOTE | 2018-05-08 17:42 | US ---
PROCEDURE: Bilateral carotid artery duplex ultrasound HISTORY: Carotid stenosis PHYSICIAN(S): Farhan Beasley MD. TECHNIQUE: Duplex sonography and color-flow Doppler were used to evaluate the carotid bifurcations and limited segments of the vertebral arteries bilaterally. FINDINGS: There is mild to moderate smooth heterogeneous plaque noted at the carotid bifurcations bilaterally. The peak systolic velocity in the proximal right internal carotid artery is 92 cm/sec. This corresponds to a 20 to 39% proximal right ICA stenosis. Normal systolic velocities are noted in the proximal right external carotid artery. There is antegrade flow in the right vertebral artery. The peak systolic velocity in the proximal left internal carotid artery is 82 cm/sec. This corresponds to a 20 to 39% proximal left ICA stenosis. Normal systolic velocities are noted in the proximal left external carotid artery. There is antegrade flow in the left vertebral artery. IMPRESSION: 1. Bilateral 20-39% proximal ICA stenoses. 2. Antegrade flow in both vertebral arteries.
[2018-05-09 05:32] VITALS: TEMP 98.2; O2SAT 92
[2018-05-09 07:10] LABS: HEMOGLOBIN 13.2 g/dL (12.0-16.0); MEAN CELL VOLUME 88.1 fl (80.0-105.0); MEAN CORPUSCULAR HEMOGLOBIN 29.7 pg (25.0-35.0); MEAN CORPUSCULAR HGB CONC 33.7 g/dl (31.0-37.0); MEAN PLATELET VOLUME 11.4 fl (7.0-11.0); RBC 4.45 10^6/uL (3.5-6.1); RED CELL DISTRIBUTION WIDTH 14.3 % (11.5-14.5); WHITE BLOOD COUNT 8.5 10^3/ul (4.5-11.0)
[2018-05-09 07:29] LABS: ALB/GLOB RATIO 1.5 (1.1-1.8); ALBUMIN 3.9 g/dL (3.0-4.8); ALT/SGPT 21 U/L (7-56); AST/SGOT 18 U/L (14-36); BLOOD UREA NITROGEN 8 mg/dL (7-21); CALCIUM 9.2 mg/dL (8.4-10.5); GFR AFRICAN-AMERICAN > 60; GFR NON-AFRICAN AMERICAN > 60
--- NOTE | 2018-05-09 08:29 | CARD ---
APPROVED REPORT Date of service: 05/08/2018 EXAM: Two-dimensional and M-mode echocardiogram with Doppler and color Doppler. Other Information Quality : AverageRhythm : INDICATION Chest Pain DIZZINESS 2D DIMENSIONS Left Atrium (2D)3.1 (1.6-4.0cm)IVSd1.1 (0.7-1.1cm) LVDd4.1 (3.9-5.9cm)PWd1.0 (0.7-1.1cm) LVDs2.7 (2.5-4.0cm)FS (%) 33.3 % LVEF (%)62.0 (>50%) M-Mode DIMENSIONS Aortic Root2.60 (2.2-3.7cm)Aortic Cusp Exc.1.70 (1.5-2.0cm) Aortic Valve AoV Peak Cclcyfvv211.0cm/s Mitral Valve MV E Kpysddea30.3cm/sMV A Wxplipad86.0cm/sE/A ratio1.4 TDI E/Lateral E'0.0E/Medial E'0.0 Tricuspid Valve TR Peak [id number]/sRAP [id number] Peak Gr.12mmHg [id number] LEFT VENTRICLE The left ventricle is normal size. There is normal left ventricular wall thickness. The left ventricular function is normal. The left ventricular ejection fraction is within the normal range. There is normal LV segmental wall motion. RIGHT VENTRICLE The right ventricle is normal size. ATRIA The left atrium size is normal. The right atrium size is normal. The interatrial septum is intact with no evidence for an atrial septal defect. AORTIC VALVE The aortic valve is normal in structure. MITRAL VALVE The mitral valve is normal in structure. Mitral regurgitation is trace to mild. TRICUSPID VALVE The tricuspid valve is normal in structure. There is trace to mild tricuspid regurgitation. PULMONIC VALVE The pulmonary valve is normal in structure. There is trace pulmonic valvular regurgitation. GREAT VESSELS The aortic root is normal in size. PERICARDIAL EFFUSION There is no pericardial effusion. <Conclusion> The left ventricle is normal size. There is normal left ventricular wall thickness. The left ventricular function is normal.
--- NOTE | 2018-05-09 08:41 | CP.PCM.PN ---
Subjective - Date & Time of Evaluation Date of Evaluation: 05/09/18 Time of Evaluation: 07:00 - Subjective Subjective: Stable on 2R. No CP, SOB or dizziness. She feels better. V/S noted. RSR PE: Lungs: clear Cor.: S1s2 Abd.: soft Ext.: no edema Neuro.; alert Labs noted. trops X2 Neg. ECG 05/08: S. Kulwant, otherwise NL. Echo: Nl. LV. See report. car. U/S and Head/Neck CTA noted. Objective - Vital Signs/Intake and Output Vital Signs (last 24 hours): Temp Pulse Resp BP Pulse Ox 98.2 F 73 20 110/61 92 L 05/09/18 05:31 05/09/18 05:32 05/09/18 05:31 05/09/18 05:31 05/09/18 05:31 Intake and Output: 05/09/18 05/09/18 06:59 18:59 Intake Total 480 Output Total 1 Balance 479 - Medications Medications: Current Medications Albuterol Sulfate (Albuterol 0.083% Inhal Cleo (2.5 Mg/3 Ml) Ud) 2 mg IH [id number] PRN PRN Reason: Shortness of Breath Alprazolam (Xanax) 0.25 mg PO DAILY PRN; Protocol PRN Reason: Anxiety Stop: 05/15/18 10:01 Aspirin (Aspirin Chewable) 81 mg PO DAILY [facility] Last Admin: 05/08/18 09:35 Dose: 81 mg Atorvastatin Calcium (Lipitor) 10 mg PO DIN [facility]PL[facility] BY [facility] Last Admin: 05/08/18 17:05 Dose: 10 mg Cholecalciferol (Vitamin D) 1,000 intlu PO DAILY [facility] Last Admin: 05/08/18 09:35 Dose: 1,000 intlu Enoxaparin Sodium (Lovenox) 40 mg SC DAILY [facility] PRN Reason: Protocol Last Admin: 05/08/18 09:06 Dose: 40 mg Famotidine (Pepcid) 40 mg PO HS [facility]PL[facility] Last Admin: 05/08/18 21:03 Dose: 40 mg Lisinopril (Zestril) 10 mg PO DAILY [facility] Last Admin: 05/08/18 09:08 Dose: 10 mg Nicotine (Nicoderm Cq) 1 patch TD DAILY [facility] Last Admin: 05/08/18 09:35 Dose: 1 patch - Labs Labs: 05/09/18 06:55 05/09/18 06:55 PT 10.7 SECONDS (9.4-12.5) 05/07/18 21:17 INR 0.94 (0.93-1.08) 05/07/18 21:17 APTT 31.0 Seconds (25.1-36.5) 05/07/18 21:17 Assessment and Plan - Assessment and Plan (Free Text) Assessment: Chest Pain Dizziness/Near Syncope COPD/Smoker HBP HLD Discogenic Disease Anxiety H/O Cocaine use Plan: OOB/Ambulate As per neuro. D/C tobacco Out pt. F/U with [facility]/Dr. Chilel
--- NOTE | 2018-05-09 09:36 | CP.PCM.PN ---
Subjective - Date & Time of Evaluation Date of Evaluation: 05/09/18 Time of Evaluation: 09:34 - Subjective Subjective: Fred Lugo PGY2 - Neurology Progress Note Patient seen and evaluated this AM. No acute events reported overnight. She indicates she has not felt dizzy, light headed since admission. She reports walking to and from bathroom and bed without difficulties. She denies focal deficits, weakness, numbness, tingling, changes in vision. Objective - Vital Signs/Intake and Output Vital Signs (last 24 hours): Temp Pulse Resp BP Pulse Ox 98.2 F 73 20 110/61 92 L 05/09/18 05:31 05/09/18 05:32 05/09/18 05:31 05/09/18 05:31 05/09/18 05:31 Intake and Output: 05/09/18 05/09/18 06:59 18:59 Intake Total 480 Output Total 1 Balance 479 - Medications Medications: Current Medications Albuterol Sulfate (Albuterol 0.083% Inhal Cleo (2.5 Mg/3 Ml) Ud) 2 mg IH [id number] PRN PRN Reason: Shortness of Breath Alprazolam (Xanax) 0.25 mg PO DAILY PRN; Protocol PRN Reason: Anxiety Stop: 05/15/18 10:01 Aspirin (Aspirin Chewable) 81 mg PO DAILY [facility] Last Admin: 05/08/18 09:35 Dose: 81 mg Atorvastatin Calcium (Lipitor) 10 mg PO DIN [facility] Last Admin: 05/08/18 17:05 Dose: 10 mg Cholecalciferol (Vitamin D) 1,000 intlu PO DAILY [facility] Last Admin: 05/08/18 09:35 Dose: 1,000 intlu Enoxaparin Sodium (Lovenox) 40 mg SC DAILY [facility] PRN Reason: Protocol Last Admin: 05/08/18 09:06 Dose: 40 mg Famotidine (Pepcid) 40 mg PO HS [facility] Last Admin: 05/08/18 21:03 Dose: 40 mg Lisinopril (Zestril) 10 mg PO DAILY [facility] Last Admin: 05/08/18 09:08 Dose: 10 mg Nicotine (Nicoderm Cq) 1 patch TD DAILY [facility] Last Admin: 05/08/18 09:35 Dose: 1 patch - Labs Labs: 05/09/18 06:55 05/09/18 06:55 PT 10.7 SECONDS (9.4-12.5) 05/07/18 21:17 INR 0.94 (0.93-1.08) 05/07/18 21:17 APTT 31.0 Seconds (25.1-36.5) 05/07/18 21:17 - Constitutional Appears: Older Than Stated Age - Head Exam Head Exam: ATRAUMATIC, NORMAL INSPECTION, NORMOCEPHALIC - Eye Exam Eye Exam: EOMI, PERRL - ENT Exam ENT Exam: Mucous Membranes Moist - Neck Exam Neck Exam: Full ROM - Cardiovascular Exam Cardiovascular Exam: REGULAR RHYTHM, +S1, +S2 - GI/Abdominal Exam GI & Abdominal Exam: Soft, Normal Bowel Sounds - Extremities Exam Extremities Exam: Full ROM. absent: Pedal Edema - Neurological Exam Neurological Exam: Alert, Awake, CN II-XII Intact, Normal Gait, Oriented x3 Neuro motor strength exam: Left Upper Extremity: 5, Right Upper Extremity: 5, Left Lower Extremity: 5, Right Lower Extremity: 5 Additional comments: Coordination intact, heel to mcgregor appropriate, DTR 2/4 - Psychiatric Exam Psychiatric exam: Normal Affect, Normal Mood - Skin Skin Exam: Dry, Intact Assessment and Plan - Assessment and Plan (Free Text) Assessment: 62 year old female with past medical history of COPD, HLD who was admitted to [facility] [place] [facility] for chest discomfort and dizziness. Patient evaluated with Head and Neck CTA showing small calcified plaques in carotid arteries, as well as carotid US showing 20-39% stenosis bilaterally. Patient being followed by cardiology and primary care team. Plan: Pre-syncope vs. Dizziness - Head/NECK CTA: Small calcified plaques in carotid arteries without stenosis - Carotid US: Bilateral 20-39% stenosis, antegrade blood flow both vertebral arteries - Echocardiogram read as normal size, wall thickness, function - patient without symptoms since admission - maintain euvolemia, replete lytes, euglycemia - Stable for discharge from neurological standpoint case and plan discussed with Dr. Elmira Lugo PGY2
[2018-05-09] MEDS: Cholecalciferol 1,000 INTLU TAB PO SCH (09:41)
[2018-05-09] MEDS: Enoxaparin 40 mg Syringe SC SCH (09:42)
[2018-05-09 09:44] VITALS: BP 117/66
[2018-05-09 10:28] VITALS: PULSE 57
--- NOTE | 2018-05-09 17:18 | CP.PCM.DIS ---
<Megha Gilliland - Last Filed: 05/09/18 21:34> Provider - Provider Date of Admission: 05/07/18 23:19 Attending physician: Eboni Pendleton DO Primary care physician: Rodrigo Chilel APN Consults: Cardiology: Herman Noonan MD Neurology: Ermias Ku MD Time Spent in preparation of Discharge (in minutes): 45 Diagnosis - Discharge Diagnosis (1) Chest pain Status: Resolved Priority: Medium (2) Dizziness Status: Acute Priority: Medium (3) Near syncope Status: Acute Priority: Medium Hospital Course - Lab Results Lab Results: Most Recent Lab Values WBC 8.5 10^3/ul (4.5-11.0) 05/09/18 06:55 RBC 4.45 10^6/uL (3.5-6.1) 05/09/18 06:55 Hgb 13.2 g/dL (12.0-16.0) 05/09/18 06:55 Hct 39.2 % (36.0-48.0) 05/09/18 06:55 MCV 88.1 fl (80.0-105.0) 05/09/18 06:55 MCH 29.7 pg (25.0-35.0) 05/09/18 06:55 MCHC 33.7 g/dl (31.0-37.0) 05/09/18 06:55 RDW 14.3 % (11.5-14.5) 05/09/18 06:55 Plt Count 276 10^3/uL (120.0-450.0) 05/09/18 06:55 MPV 11.4 fl (7.0-11.0) H 05/09/18 06:55 Gran % 47.9 % (50.0-68.0) L 05/08/18 05:20 Lymph % (Auto) 41.5 % (22.0-35.0) H 05/08/18 05:20 [place] % (Auto) 8.6 % (1.0-6.0) H 05/08/18 05:20 Eos % (Auto) 1.8 % (1.5-5.0) 05/08/18 05:20 Baso % (Auto) 0.2 % (0.0-3.0) 05/08/18 05:20 Gran # 4.94 (1.4-6.5) 05/08/18 05:20 Lymph # (Auto) 4.3 (1.2-3.4) H 05/08/18 05:20 [place] # (Auto) 0.9 (0.1-0.6) H 05/08/18 05:20 Eos # (Auto) 0.2 (0.0-0.7) 05/08/18 05:20 Baso # (Auto) 0.02 K/mm3 (0.0-2.0) 05/08/18 05:20 PT 10.7 SECONDS (9.4-12.5) 05/07/18 21:17 INR 0.94 (0.93-1.08) 05/07/18 21:17 APTT 31.0 Seconds (25.1-36.5) 05/07/18 21:17 Sodium 137 mmol/L (132-148) 05/09/18 06:55 Potassium 4.2 mmol/L (3.6-5.0) 05/09/18 06:55 Chloride 103 mmol/L (98-107) 05/09/18 06:55 Carbon Dioxide 23 mmol/L (21-33) 05/09/18 06:55 Anion Gap 16 (10-20) 05/09/18 06:55 BUN 8 mg/dL (7-21) 05/09/18 06:55 Creatinine 0.8 mg/dl (0.7-1.2) 05/09/18 06:55 Est GFR ( Amer) > 60 05/09/18 06:55 Est GFR (Non-Af Amer) > 60 05/09/18 06:55 Random Glucose 100 mg/dL (70-110) 05/09/18 06:55 Hemoglobin A1c 5.9 % (4.2-6.5) 05/08/18 05:30 Calcium 9.2 mg/dL (8.4-10.5) 05/09/18 06:55 Phosphorus 4.8 mg/dL (2.5-4.5) H 05/08/18 05:20 Magnesium 2.0 mg/dL (1.7-2.2) 05/08/18 05:20 Total Bilirubin 0.3 mg/dL (0.2-1.3) 05/09/18 06:55 AST 18 U/L (14-36) 05/09/18 06:55 ALT 21 U/L (7-56) 05/09/18 06:55 Alkaline Phosphatase 54 U/L (38-126) 05/09/18 06:55 Lactate Dehydrogenase 376 U/L (333-699) 05/07/18 21:17 Total Creatine Kinase 259 U/L (35-230) H 05/07/18 21:17 CK-MB (CK-2) 0.5 ng/mL (0.0-3.6) 05/07/18 21:17 CK-MB (CK-2) % Cancelled 05/07/18 21:17 Troponin I < 0.01 ng/mL 05/08/18 11:15 Total Protein 6.4 g/dL (5.8-8.3) 05/09/18 06:55 Albumin 3.9 g/dL (3.0-4.8) 05/09/18 06:55 Globulin 2.5 gm/dL 05/09/18 06:55 Albumin/Globulin Ratio 1.5 (1.1-1.8) 05/09/18 06:55 Triglycerides 90 mg/dL (35-160) 05/08/18 05:30 Cholesterol 140 mg/dL (130-200) 05/08/18 05:30 LDL Cholesterol Direct 71 mg/dL (0-129) 05/08/18 05:30 HDL Cholesterol 49 mg/dL (29-60) 05/08/18 05:30 TSH 3rd Generation 2.77 mIU/mL (0.46-4.68) 05/08/18 05:20 - Hospital Course Hospital Course: Megha Gilliland D.O. PGY1 --Discharge Summary Hospital Course Patient is a 62 yo F with Past Medical History of Hypertension, COPD, Osteoarthritis, and Hyperlipidemia presented to ED with left sided chest/rib pain and near-syncopal preceded by positional dizziness. Patient was subsequently admitted to rule out acute coronary syndrome and for pre-syncope. Cardiac enzymes were trended and were negative x3. EKG showed bradycardia with no acute ST-T wave changes. Head CT showed no acute intracranial hemorrhage, but had minor chronic periventricular white matter ischemic changes and central volume loss. Dilated perivascular space right inferior lateral basal ganglia. Carotid US showed bilateral 20-39% stenosis with integrate blood flow in both vertebral arteries. Echocardiogram showed normal size, thickness, and ejection fraction. Head/Neck CTA showed small calcified plaques in the carotid arteries without stenosis. Cardiology and neurology were consulted, recommendations were appreciated. Today, patient was seen and examined at bedside. Patient stated that her symptoms had completely resolved. PT evaluated patient and cleared her to be discharged home when ready. Both cardiology and neurology cleared patient for discharge as work-up was unremarkable and advised outpatient follow-up. Patient was counseled on risks of tobacco use and was advised cessation. Patients home medications were resumed as listed below. Patient was advised to follow up with her PMD, weaving supervisor, and neurologist on discharge. Patient acknowledged and agreed to plan. Case was discussed with all consultants who were in agreed with plan. Discharge Medications: Albuterol HFA 2 puffs IH Q6h prn Tylenol 650 mg PO q8h prn Xanax 0.25 mg PO daily prn Aspirin 81 mg PO daily Lipitor 10 mg PO daily Cholecalciferol 1000 u PO daily Lisinopril 10 mg PO daily Discharge Exam - Head Exam Head Exam: ATRAUMATIC, NORMAL INSPECTION, NORMOCEPHALIC - Eye Exam Eye Exam: EOMI, Normal appearance - ENT Exam ENT Exam: Mucous Membranes Moist - Neck Exam Neck exam: Normal Inspection - Respiratory Exam Respiratory Exam: NORMAL BREATHING PATTERN. absent: Rhonchi, Wheezes - Cardiovascular Exam Cardiovascular Exam: RRR. absent: Diastolic murmur, Gallop, JVD, Systolic Murmur - GI/Abdominal Exam GI & Abdominal Exam: Normal Bowel Sounds, Soft. absent: Distended, Rebound, Tenderness - Extremities Exam Extremities exam: normal inspection Additional comments: no tenderness to palpation of lower extremities - Back Exam Back exam: FULL ROM. absent: tenderness - Neurological Exam Neurological exam: Alert, CN II-XII Intact, Normal Gait, Oriented x3 - Skin Skin Exam: Dry, Intact, Normal Color, Warm Discharge Plan - Follow Up Plan Condition: STABLE Disposition: HOME/ ROUTINE Instructions: Vertigo (a Type of Dizziness) (DC), Chest Pain (DC), Chest Pain ( GEN) Additional Instructions: - Follow up with primary doctor, Dr. Chilel, within 3-5 days; get referral for weaving supervisor from Dr. Chilel - Follow up with cardiology at [facility] within 1 week - Follow up with neurology, Dr. Ku, within 1 week - Resume home medications as prescribed - Please refrain from smoking - Proceed to ED if symptoms return Referrals: Herman Noonan MD [Staff Provider] - Ermias Ku MD [Staff Provider] - Rodrigo Chilel APN [Primary Care Provider] - <Eboni Pendleton - Last Filed: 05/10/18 08:38> Provider - Provider Date of Admission: 05/07/18 23:19 Attending physician: Eboni Pendleton DO Primary care physician: Rodrigo Chilel [facility] Course - Lab Results Lab Results: Most Recent Lab Values WBC 8.5 10^3/ul (4.5-11.0) 05/09/18 06:55 RBC 4.45 10^6/uL (3.5-6.1) 05/09/18 06:55 Hgb 13.2 g/dL (12.0-16.0) 05/09/18 06:55 Hct 39.2 % (36.0-48.0) 05/09/18 06:55 MCV 88.1 fl (80.0-105.0) 05/09/18 06:55 MCH 29.7 pg (25.0-35.0) 05/09/18 06:55 MCHC 33.7 g/dl (31.0-37.0) 05/09/18 06:55 RDW 14.3 % (11.5-14.5) 05/09/18 06:55 Plt Count 276 10^3/uL (120.0-450.0) 05/09/18 06:55 MPV 11.4 fl (7.0-11.0) H 05/09/18 06:55 Gran % 47.9 % (50.0-68.0) L 05/08/18 05:20 Lymph % (Auto) 41.5 % (22.0-35.0) H 05/08/18 05:20 [place] % (Auto) 8.6 % (1.0-6.0) H 05/08/18 05:20 Eos % (Auto) 1.8 % (1.5-5.0) 05/08/18 05:20 Baso % (Auto) 0.2 % (0.0-3.0) 05/08/18 05:20 Gran # 4.94 (1.4-6.5) 05/08/18 05:20 Lymph # (Auto) 4.3 (1.2-3.4) H 05/08/18 05:20 [place] # (Auto) 0.9 (0.1-0.6) H 05/08/18 05:20 Eos # (Auto) 0.2 (0.0-0.7) 05/08/18 05:20 Baso # (Auto) 0.02 K/mm3 (0.0-2.0) 05/08/18 05:20 PT 10.7 SECONDS (9.4-12.5) 05/07/18 21:17 INR 0.94 (0.93-1.08) 05/07/18 21:17 APTT 31.0 Seconds (25.1-36.5) 05/07/18 21:17 Sodium 137 mmol/L (132-148) 05/09/18 06:55 Potassium 4.2 mmol/L (3.6-5.0) 05/09/18 06:55 Chloride 103 mmol/L (98-107) 05/09/18 06:55 Carbon Dioxide 23 mmol/L (21-33) 05/09/18 06:55 Anion Gap 16 (10-20) 05/09/18 06:55 BUN 8 mg/dL (7-21) 05/09/18 06:55 Creatinine 0.8 mg/dl (0.7-1.2) 05/09/18 06:55 Est GFR ( Amer) > 60 05/09/18 06:55 Est GFR (Non-Af Amer) > 60 05/09/18 06:55 Random Glucose 100 mg/dL (70-110) 05/09/18 06:55 Hemoglobin A1c 5.9 % (4.2-6.5) 05/08/18 05:30 Calcium 9.2 mg/dL (8.4-10.5) 05/09/18 06:55 Phosphorus 4.8 mg/dL (2.5-4.5) H 05/08/18 05:20 Magnesium 2.0 mg/dL (1.7-2.2) 07/16/18 05:20 Total Bilirubin 0.3 mg/dL (0.2-1.3) 05/09/18 06:55 AST 18 U/L (14-36) 05/09/18 06:55 ALT 21 U/L (7-56) 05/09/18 06:55 Alkaline Phosphatase 54 U/L (38-126) 05/09/18 06:55 Lactate Dehydrogenase 376 U/L (333-699) 05/07/18 21:17 Total Creatine Kinase 259 U/L (35-230) H 05/07/18 21:17 CK-MB (CK-2) 0.5 ng/mL (0.0-3.6) 05/07/18 21:17 CK-MB (CK-2) % Cancelled 05/07/18 21:17 Troponin I < 0.01 ng/mL 05/08/18 11:15 Total Protein 6.4 g/dL (5.8-8.3) 05/09/18 06:55 Albumin 3.9 g/dL (3.0-4.8) 05/09/18 06:55 Globulin 2.5 gm/dL 05/09/18 06:55 Albumin/Globulin Ratio 1.5 (1.1-1.8) 05/09/18 06:55 Triglycerides 90 mg/dL (35-160) 05/08/18 05:30 Cholesterol 140 mg/dL (130-200) 05/08/18 05:30 LDL Cholesterol Direct 71 mg/dL (0-129) 05/08/18 05:30 HDL Cholesterol 49 mg/dL (29-60) 05/08/18 05:30 TSH 3rd Generation 2.77 mIU/mL (0.46-4.68) 05/08/18 05:20 Attending/Attestation - Attestation I have personally seen and examined this patient.: Yes I have fully participated in the care of the patient.: Yes I have reviewed all pertinent clinical information, including history, physical exam and plan: Yes Notes (Text): Patient seen and examined by me with resident at 10:00AM 05/09/18. Case including discharge plan discussed with resident. Agree with above with following additions/corrections Patient is a 62-year-old female with past medical history significant for hypertension, COPD, osteoarthritis, and hyperlipidemia that presented to the emergency room with left-sided chest pain and near syncope. Please see dictated H&P for further details. Patient was admitted for presyncopal episode and atypical chest pain. Patient was evaluated by cardiology and neurology. Patient had carotid ultrasound which per radiologist showed bilateral 20-39% proximal ICA stenosis. Head CT per radiology showed no acute intracranial hemorrhage, minor chronic periventricular white matter ischemic changes, minor central volume loss, and dilated perivascular space right inferior lateral basal ganglia. 2-D echo per weaving supervisor showed left ventricular normal size, normal left ventricular wall thickness, and the left ventricular function is normal. Neck CTA per radiologist showed small calcified plaques in the carotid arteries without stenosis. Head CTA per radiologist showed unremarkable CT angiography of the brain. Patient's symptoms resolved after admission. Patient was cleared for discharge by both cardiology and neurology. Per cardiology patient to follow-up with her psychiatric group/Dr. Chilel as an outpatient. Patient was maintained on aspirin and statin. ACS was ruled out. Patient did have leukocytosis on admission was likely reactive and did resolve. Patient was continued on home lisinopril for hypertension. Patient was counseled on tobacco cessation. All symptoms resolved upon discharge. Patient was cleared for discharge by all consultants. Patient was discharged home. Physical exam: Gen: Awake and alert sitting up in bed in no acute distress HEENT: Normocephalic atraumatic. Extraocular muscles intact, pupils equal reactive. Oropharynx is pink and moist, no pharyngeal erythema or exudate appreciated. Neck is supple. Cardiovascular: Normal rhythm, normal S1-S2. No murmurs, rubs, or gallops appreciated Pulmonary: Normal respiratory effort. No rhonchi, rales or wheezing appreciated. Gastrointestinal: Soft, nontender, nondistended, positive bowel sounds all 4 quadrants, no guarding Musculoskeletal: Normal range of motion all extremities, no calf tenderness, no CVA tenderness Central nervous system: AAO 3. Cranial nerves 2 through 12 grossly intact. 5 out of 5 muscle strength all extremities. Sensation intact. Dermatologic: Skin warm and dry Please see chart for full details. Follow up instructions. Patient follow-up with primary care doctor within 3-5 days. Patient to get referral for weaving supervisor from primary care doctor. Patient to follow up with [facility] cardiology within 1 week. Patient follow-up with neurology Dr. Ku within 1 week. Patient to refrain from using tobacco. All instructions explained to patient in detail. Patient both understands and agrees to all instructions. Time spent in discharging the patient including chart review, medication reconciliation, discussion with the patient, medical collector, consultants, and nursing staff was approximately 40 minutes. 05/10/18 08:38
== END 2018-05-09 13:08 | disposition home or self-care (01) ==
LOC: ED 20:22 → ERH 23:19 → 2RNO 05-08 00:47
PROVIDERS: ADMIT Internal Medicine; ATTEND Hospitalist
DX: R07.89 Other chest pain (principal); I10 Essential (primary) hypertension; K21.9 Gastro-esophageal reflux disease without esophagitis; J44.9 Chronic obstructive pulmonary disease, unspecified; E78.00 Pure hypercholesterolemia, unspecified; F41.9 Anxiety disorder, unspecified; I65.23 Occlusion and stenosis of bilateral carotid arteries; F17.210 Nicotine dependence, cigarettes, uncomplicated; Z90.710 Acquired absence of both cervix and uterus; Z82.49 Family history of ischemic heart disease and other diseases of the circulatory system; Z83.3 Family history of diabetes mellitus; Z88.0 Allergy status to penicillin
CPT/HCPCS: 36415; 70450; 70496; 70498; 71045; 80053; 80061; 82550; 82553; 83036; 83615; 83735; 84100; 84443; 84484; 85025; 85027; 85610; 85730; 93005; 93306; 93880; 97116; 97161; 99285; G0378; G8978; G8979; G8980; J1650; Q9967

== ENCOUNTER 2018-08-05 18:38 | Observation (INO) | payer MEDICAID ==
[2018-08-05 19:03] VITALS: BMI 27.3
--- NOTE | 2018-08-05 19:37 | ED PDOC ---
Arrival/HPI - General Historian: Patient - History of Present Illness Narrative History of Present Illness (Text): 08/05/18 19:26 Patient is a 63 year old female with a past medical history including hypertension, hyperlipidemia, COPD, osteoarthritis and anxiety presenting to the emergency with left sided rib pain. She states that she initially injured her ribs two weeks ago after leaning over the center console in a car. She was seen at [facility] at that time and diagnosed with a "bruised rib". She is coming tonight because earlier today, 7 hours earlier, she was carrying her groceries home when she started to experience pain on the left lateral aspect of her breast. The pain is described as the same pain as two weeks ago and in the same location, only more severe this time. She only experiences pain with movement and it does not radiate. The pain is described as a sharp pain "on the surface of her ribs". She took a nap and decided to come in after she still had pain after the nap. She has not taken anything for the pain. Denies fevers, chills, nausea, vomiting, shortness of breath, lightheadedness, dizziness, diaphoresis, numbness or tingling. PMD: Dr. Chilel Time/Duration: Other (7 hours) Symptom Onset: Sudden Symptom Course: Intermittent Quality: Other (sharp) Activities at Onset: Light <Tirso Zamora - Last Filed: 08/06/18 00:28> <Kennedy Frias - Last Filed: 08/06/18 02:43> - General Chief Complaint: Chest Pain Time Seen by Provider: 08/05/18 19:08 Past Medical History - Provider Review Nursing Documentation Reviewed: Yes - Tetanus Immunization Tetanus Immunization: Unknown - Cardiac Hx Cardiac Disorders: Yes Hx Hypertension: Yes - Pulmonary Hx Chronic Obstructive Pulmonary Disease (COPD): Yes - Neurological Hx Neurological Disorder: No - HEENT Hx HEENT Disorder: Yes (wears glasses) - Renal Hx Renal Disorder: No - Endocrine/Metabolic Hx Endocrine Disorders: No - Hematological/Oncological Hx Blood Disorders: No Hx Shingles: Yes (March 2017) - Integumentary Hx Dermatological Disorder: No - Musculoskeletal/Rheumatological Hx Arthritis: Yes - Gastrointestinal Hx Gastrointestinal Disorders: Yes (recent EGD/colonoscopy- "blockage") Hx Gastroesophageal Reflux: Yes - Genitourinary/Gynecological Hx Genitourinary Disorders: No Hx Urinary Tract Infection: Yes - Psychiatric Hx Psychophysiologic Disorder: Yes Hx Anxiety: Yes Hx Depression: Yes Hx Substance Use: Yes (cocaine-quit 6 yr ago) Other/Comment: etoh, cocaine abuse - Surgical History Hx Hysterectomy: Yes (1993) Other/Comment: tubal ligation - Anesthesia Hx Anesthesia: Yes Hx Anesthesia Reactions: No Hx Malignant Hyperthermia: No - Suicidal Assessment Feels Threatened In Home Enviroment: No <Tirso Zamora - Last Filed: 08/06/18 00:28> Family/Social History - Physician Review Nursing Documentation Reviewed: Yes Family/Social History: CAD/SC Smoking Status: Heavy Smoker > 10 Cigarettes Daily Hx Alcohol Use: Yes (hx of daily use, now only occassional) Hx Substance Use: Yes (cocaine-quit 6 yr ago) Hx Substance Use Treatment: No <Tirso Zamora - Last Filed: 08/06/18 00:28> Allergies/Home Meds <Tirso Zamora - Last Filed: 08/06/18 00:28> <Kennedy Frias - Last Filed: 08/06/18 02:43> Allergies/Adverse Reactions: Allergies penicillin G Allergy (Mild, Verified 05/07/18 20:44) RASH Home Medications: Home Meds Medication Instructions Recorded Confirmed RX: ALPRAZolam [Xanax] 0.25 mg PO DAILY PRN 07/22/16 05/07/18 RX: Albuterol HFA [Ventolin HFA 90 2 puff IH [id number] PRN 07/22/16 05/07/18 mcg/actuation (8 g)] RX: Atorvastatin [Lipitor] 10 mg PO DAILY 07/22/16 05/07/18 RX: Lisinopril [Prinivil] 10 mg PO DAILY 07/22/16 05/07/18 RX: Aspirin 81 mg PO DAILY 05/07/18 05/07/18 RX: Acetaminophen [Tylenol 650 mg PO Q8H PRN 05/08/18 05/08/18 Arthritis] RX: Cholecalciferol [Vitamin D 1,000 unit PO DAILY 05/08/18 05/08/18 1000 IU] Review of Systems - Physician Review All systems were reviewed & negative as marked: Yes - Review of Systems Constitutional: Normal. absent: Fatigue, Fevers Eyes: Normal. absent: Vision Changes ENT: Normal. absent: Sore Throat Respiratory: Normal. absent: SOB, Wheezing Cardiovascular: Normal. absent: Chest Pain, Palpitations, IBARRA, Orthopnea, Syncope Gastrointestinal: Normal. absent: Abdominal Pain, Constipation, Diarrhea, Nausea, Vomiting Musculoskeletal: Other (left, lateral rib pain located at the inferior, lateral aspect of the left breast) Skin: Normal. absent: Rash, Laceration Neurological: Normal. absent: Headache, Dizziness Endocrine: Normal. absent: Diaphoresis Hemo/Lymphatic: Normal. absent: Adenopathy Psychiatric: Normal. absent: Anxiety <Tirso Zamora - Last Filed: 08/06/18 00:28> Physical Exam Vital Signs Reviewed: Yes Vital Signs Temp Pulse Resp BP Pulse Ox 08/05/18 18:55 97.5 F L 62 18 143/65 97 08/05/18 18:52 98.0 F 65 18 143/65 99 Temperature: Afebrile Blood Pressure: Normal Pulse: Regular Respiratory Rate: Normal Appearance: Positive for: Well-Appearing, Non-Toxic, Comfortable Pain Distress: None Mental Status: Positive for: Alert and Oriented X 3 - Systems Exam Head: Present: Atraumatic, Normocephalic Extroacular Muscles: Present: EOMI Conjunctiva: Present: Normal Mouth: Present: Moist Mucous Membranes Nose (External): Present: Atraumatic Nose (Internal): Present: No Active Bleeding Neck: Present: Normal Range of Motion Respiratory/Chest: Present: Clear to Auscultation, Good Air Exchange. No: Respiratory Distress, Accessory Muscle Use, Tender to Palpation Cardiovascular: Present: Regular Rate and Rhythm, Normal S1, S2. No: Murmurs, Tachycardic Abdomen: No: Tenderness, Distention, Peritoneal Signs, Rebound, Guarding Upper Extremity: Present: Normal Inspection, NORMAL PULSES. No: Cyanosis, Edema Lower Extremity: Present: Normal Inspection, NORMAL PULSES. No: Edema Neurological: Present: GCS=15, CN II-XII Intact, Speech Normal, Motor Func Grossly Intact Skin: Present: Warm, Dry, Normal Color. No: Rashes Lymphatic: No: Cervical Adenopathy Psychiatric: Present: Alert, Oriented x 3, Normal Insight, Normal Concentration <Tirso Zamora - Last Filed: 08/06/18 00:28> Vital Signs Temp Pulse Resp BP Pulse Ox 08/05/18 20:09 60 18 132/67 98 08/05/18 18:55 97.5 F L 62 18 143/65 97 08/05/18 18:52 98.0 F 65 18 143/65 99 <Kennedy Frias - Last Filed: 08/06/18 02:43> Medical Decision Making ED Course and Treatment: 08/05/18 19:39 Patient is a 63 year old female with a past medical history including hypertension, hyperlipidemia, COPD, osteoarthritis and anxiety presenting to the emergency with left sided rib pain. Patient is resting comfortably, in no acute distress and speaking in full sentences. Suspected aggravation of recent musculoskeletal injury. Patient states she is in no pain at rest and does not need anything for pain at this time. Labs, EKG and CXR EKG is NSR @66bpm, normal axis, no acute ST elevations or depressions - normal EKG 08/05/18 21:48 Reviewed patient's prior charts - ECHO on 05/09/18 shows normal LVEF, normal ventricular wall thickness/function. Patient found to be hyponatremic and hypomag Given 1L bolus of NS and 1gm of mag sulfate IV Will re-check BMP 08/06/18 00:20 Repeat Na is 126 after 1 L of NS Call placed to Dr. Enamorado (hospitalist), case discussed in detail. Dr. Enamorado has a ccepted patient onto hospitalist service. Patient admitted to telemetry for observation. Re-evaluation Time: 00:20 Reassessment Condition: Unchanged - Lab Interpretations I have reviewed the lab results: Yes - RAD Interpretation Narrative RAD Interpretations (Text): 08/05/18 22:19 CXR - no acute disease. Radiology Orders: 08/05/18 19:20 CHEST PORTABLE [RAD] Stat Documentation Writer: ED Physician - EKG Interpretation Interpreted by ED Physician: Yes Type: 12 lead EKG <Tirso Zamora - Last Filed: 08/06/18 00:28> ED Course and Treatment: Impression: Pt seen and evaluated with medical laboratory technical officer. Pt, whose past medical history includes hypertension, hyperlipidemia, COPD, osteoarthritis, and anxiety, presented for left-sided rib pain. Aware and agree with HPI, clinical findings, plan, and management. Plan: -- EKG -- Chest X-ray -- Labs, troponin -- IV fluids -- Magnesium sulfate -- Reassess and disposition - Lab Interpretations Lab Results: 08/05/18 20:15 08/05/18 20:15 Lab Results 08/05/18 20:15: Sodium 125 L, Potassium 3.7, Chloride 88 L, Carbon Dioxide 28, Anion Gap 14, BUN 12, Creatinine 0.8, Est GFR ( Amer) > 60, Est GFR (Non- Af Amer) > 60, Random Glucose 95, Calcium 9.3, Magnesium 1.5 L, Total Bilirubin 0.3, AST 39 H D, ALT 39, Alkaline Phosphatase 64, Troponin I < 0.01, Total Protein 6.9, Albumin 4.1, Globulin 2.8, Albumin/Globulin Ratio 1.4 08/05/18 20:15: WBC 11.1 H D, RBC 3.91, Hgb 11.7 L, Hct 33.4 L, MCV 85.4, MCH 29.9, MCHC 35.0, RDW 12.8, Plt Count 277, MPV 10.9, Gran % 54.1, Lymph % (Auto) 35.5 H, [place] % (Auto) 7.7 H, Eos % (Auto) 2.3, Baso % (Auto) 0.4, Gran # 5.99, Lymph # (Auto) 3.9 H, [place] # (Auto) 0.9 H, Eos # (Auto) 0.3, Baso # (Auto) 0.04 I have reviewed the lab results: Yes - RAD Interpretation Radiology Orders: 08/05/18 19:20 CHEST PORTABLE [RAD] Stat - EKG Interpretation Interpreted by ED Physician: Yes Type: 12 lead EKG - Medication Orders Current Medication Orders: Magnesium Sulfate/Dextrose (Magnesium Sulfate 1 Gm/100 Ml D5w) 1 gm in 100 mls @ 100 mls/hr IVPB ONCE ONE Stop: 08/05/18 21:54 Last Admin: 08/05/18 21:05 Dose: 100 mls/hr eMAR Start Stop Document 08/05/18 21:05 SUSI (Rec: 08/05/18 21:05 RG [id number]) Intravenous Solution Start Date 08/05/18 Start Time 21:05 Sodium Chloride (Sodium Chloride 0.9%) 1,000 mls @ 999 mls/hr IV .Q1H1M STA Stop: 08/05/18 21:55 Last Admin: 08/05/18 20:59 Dose: 999 mls/hr eMAR Start Stop Document 08/05/18 20:59 RG (Rec: 08/05/18 21:04 RG [id number]) Intravenous Solution Start Date 08/05/18 Start Time 20:59 <Kennedy Frias - Last Filed: 08/06/18 02:43> - PA / RATE CLERK PASSENGER / Resident Statement / has reviewed & agrees with the documentation as recorded. / has examined the patient and agrees with the treatment plan. <Kennedy Frias - Last Filed: 08/06/18 02:43> Disposition/Present on Arrival - Present on Arrival Any Indicators Present on Arrival: No History of DVT/PE: No History of Uncontrolled Diabetes: No Urinary Catheter: No History of Decub. Ulcer: No History Surgical Site Infection Following: Obstetrical/Gynecological Surgery - Disposition Have Diagnosis and Disposition been Completed?: Yes Disposition Time: 00:26 Patient Plan: Admission, Observation <Tirso Zamora - Last Filed: 08/06/18 00:28> - Present on Arrival Any Indicators Present on Arrival: No - Disposition Have Diagnosis and Disposition been Completed?: Yes <Kennedy Frias - Last Filed: 08/06/18 02:43> - Disposition Diagnosis: Hyponatremia, Chest pain Disposition: HOSPITALIZED Patient Problems: Current Active Problems Problem Status Onset Chest pain Acute Hyponatremia Acute Condition: FAIR
[2018-08-05 20:35] LABS: BASO # 0.04 K/mm3 (0.0-2.0); BASO % 0.4 % (0.0-3.0); EOS # 0.3 (0.0-0.7); EOS % 2.3 % (1.5-5.0); GRAN # 5.99 (1.4-6.5); GRAN % 54.1 % (50.0-68.0); HEMOGLOBIN 11.7 g/dL (12.0-16.0); LYMPH # 3.9 (1.2-3.4); LYMPH % 35.5 % (22.0-35.0); MEAN CELL VOLUME 85.4 fl (80.0-105.0); MEAN CORPUSCULAR HEMOGLOBIN 29.9 pg (25.0-35.0); MEAN PLATELET VOLUME 10.9 fl (7.0-11.0); MONO # 0.9 (0.1-0.6); MONO % 7.7 % (1.0-6.0); RBC 3.91 10^6/uL (3.5-6.1); RED CELL DISTRIBUTION WIDTH 12.8 % (11.5-14.5); WHITE BLOOD COUNT 11.1 10^3/ul (4.5-11.0)
[2018-08-05 20:50] LABS: ALB/GLOB RATIO 1.4 (1.1-1.8); ALBUMIN 4.1 g/dL (3.0-4.8); ALT/SGPT 39 U/L (7-56); AST/SGOT 39 U/L (14-36); BLOOD UREA NITROGEN 12 mg/dL (7-21); CALCIUM 9.3 mg/dL (8.4-10.5); GFR NON-AFRICAN AMERICAN > 60
[2018-08-05] MEDS ORDERED: Magnesium Sulfate 1 gm in D5W 1 GM/100 ML BAG IVPB ONE (20:55)
[2018-08-05] MEDS ORDERED: Sodium Chloride 0.9% 1,000 ML IV STA (20:55)
[2018-08-05 21:02] LABS: TROPONIN I < 0.01 ng/mL
[2018-08-06 00:01] LABS: BLOOD UREA NITROGEN 10 mg/dL (7-21); CALCIUM 8.5 mg/dL (8.4-10.5); GFR NON-AFRICAN AMERICAN > 60
[2018-08-06] MEDS ORDERED: Potassium Chloride 20 mEq ER Tab PO STA (00:15)
--- NOTE | 2018-08-06 01:05 | CP.PCM.HP ---
History of Present Illness - History of Present Illness History of Present Illness: Wm Cole, PGY1 H&P for Dr. Enamorado cc: left sided rib pain HPI: Patient is a 63 y/o F with a past medical history including hypertension, hyperlipidemia, COPD, PAD, osteoarthritis and anxiety presenting to the ED with left sided rib pain. She states that she initially injured her ribs two weeks ago. She was seen at [facility] at that time and diagnosed with a "bruised rib". Earlier this afternoon she was carrying her groceries home when she started to experience pain on the left lateral aspect of her chest, it was not improving. The pain is described as the same pain as two weeks ago and at the same location. Her symptoms are more severe during this admission. She has no pain at rest and experiences worsening pain with movement. The pain does not radiate to the arm, jaw, or back. The pain is described as a sharp and stabbing pain. During this time, she rates the rib pain as 5/10 but when she moves the pain is worse. Denies recent trauma to the area. Pain is not associated with exertion and she has not had a recent decline in functional tolerance. Otherwise, she denies fevers, chills, nausea, vomiting, shortness of breath, lightheadedness, dizziness, diaphoresis, numbness and tingling. No changes in appetite; patient has been drinking adequate fluids- two 16 oz water bottles every day. A full 12 point ROS was conducted and unremarkable except as stated above. In the ED VSS. On BMP, Na is 125 initially (baseline is 135). Repeat Na is 126. K was 3.4. AST/ALT 39/39. Troponin negative x1 EKG NSR @66bpm, normal axis, no acute ST elevations or depressions - normal EKG. CXR pending official read. No acute cardiopulmonary pathology - as ready by auto service writer. Previous ECHO on 05/09/18 shows normal LVEF, normal ventricular wall thickness/function. Given 1 L NS in ED. Tele for observation. PMD: Dr. Chilel Parking Cashier: Dr. Tierney GI: Dr. Tubbs Pharm: [facility] [place]. As per prior charting: PMH: HTN, HLD, COPD, OA, anxiety, active smoker, PAD, recent "blockage" on EGD/colonoscopy PSH: Hysterectomy 2/2 endometriosis, polyps removed on colonoscopy Home Meds: ASA 81mg QD, Plavix 75 mg QD, Lisinopril-HCTZ 20-25mg daily, Atorvastatin 10mg daily, Senexon 50mg prn, Vit D 1000mg daily, Albuterol Inhaler, Xanax 0.25 QD PRN Allergies: Penicillin FamHx: Heart disease/ CAD, DM, HTN - both sides of immediate family. Brother from [place] in his 50's. Social Hx: Current smoker w/ 30 pack year hx, EtOH every weekend 4-5 beers, Hx Cocaine use -stopped 6 years ago. Lives at home w/ son independent w /ADLs and ambulation. Present on Admission - Present on Admission Any Indicators Present on Admission: No Review of Systems - Review of Systems All systems: reviewed and no additional remarkable complaints except (as per HPI.) Past Patient History - Tetanus Immunizations Tetanus Immunization: Unknown - Past Social History Smoking Status: Heavy Smoker > 10 Cigarettes Daily - CARDIAC Hx Cardiac Disorders: Yes Hx Hypertension: Yes - PULMONARY Hx Chronic Obstructive Pulmonary Disease (COPD): Yes - NEUROLOGICAL Hx Neurological Disorder: No - HEENT Hx HEENT Problems: Yes (wears glasses) - RENAL Hx Chronic Kidney Disease: No - ENDOCRINE/METABOLIC Hx Endocrine Disorders: No - HEMATOLOGICAL/ONCOLOGICAL Hx Blood Disorders: No Hx Shingles: Yes (March 2017) - INTEGUMENTARY Hx Dermatological Problems: No - MUSCULOSKELETAL/RHEUMATOLOGICAL Hx Arthritis: Yes - GASTROINTESTINAL Hx Gastrointestinal Disorders: Yes (recent EGD/colonoscopy- "blockage") Hx Gastroesophageal Reflux: Yes - GENITOURINARY/GYNECOLOGICAL Hx Genitourinary Disorders: No Hx Urinary Tract Infection: Yes - PSYCHIATRIC Hx Psychophysiologic Disorder: Yes Hx Anxiety: Yes Hx Depression: Yes Hx Substance Use: Yes (cocaine-quit 6 yr ago) Other/Comment: etoh, cocaine abuse - SURGICAL HISTORY Hx Hysterectomy: Yes (1993) Other/Comment: tubal ligation - ANESTHESIA Hx Anesthesia: Yes Hx Anesthesia Reactions: No Hx Malignant Hyperthermia: No Meds Allergies/Adverse Reactions: Allergies Allergy/AdvReac Type Severity Reaction Status Date / Time penicillin G Allergy Mild RASH Verified 08/06/18 02:47 Physical Exam - Constitutional Appears: No Acute Distress - Head Exam Head Exam: ATRAUMATIC, NORMAL INSPECTION, NORMOCEPHALIC - Eye Exam Eye Exam: EOMI, Normal appearance, PERRL Pupil Exam: NORMAL ACCOMODATION, PERRL - ENT Exam ENT Exam: Mucous Membranes Moist, Normal Exam - Neck Exam Neck exam: Positive for: Normal Inspection - Respiratory Exam Respiratory Exam: Clear to Auscultation Bilateral, NORMAL BREATHING PATTERN. absent: Rales, Rhonchi, Wheezes - Cardiovascular Exam Cardiovascular Exam: REGULAR RHYTHM, +S1, +S2. absent: Systolic Murmur Additional comments: No pain with palpation of the left lateral ribcage. - GI/Abdominal Exam GI & Abdominal Exam: Normal Bowel Sounds, Soft. absent: Guarding, Rebound, Rigid, Tenderness - Extremities Exam Extremities exam: Positive for: full ROM, normal inspection, pedal pulses present. Negative for: pedal edema, tenderness - Back Exam Back exam: NORMAL INSPECTION - Skin Skin Exam: Dry, Intact, Normal Color, Warm Results - Vital Signs Recent Vital Signs: Last Vital Signs Temp 98.7 F 08/05/18 23:30 Pulse 60 08/05/18 23:30 Resp 18 08/05/18 23:30 BP 126/70 08/05/18 23:30 Pulse Ox 99 08/05/18 23:30 - Labs Result Diagrams: 08/05/18 20:15 08/05/18 23:25 Labs: Laboratory Results - last 24 hr 08/05/18 08/05/18 08/05/18 20:15 20:15 23:25 WBC 11.1 H D RBC 3.91 Hgb 11.7 L Hct 33.4 L MCV 85.4 MCH 29.9 MCHC 35.0 RDW 12.8 Plt Count 277 MPV 10.9 Gran % 54.1 Lymph % (Auto) 35.5 H [place] % (Auto) 7.7 H Eos % (Auto) 2.3 Baso % (Auto) 0.4 Gran # 5.99 Lymph # (Auto) 3.9 H [place] # (Auto) 0.9 H Eos # (Auto) 0.3 Baso # (Auto) 0.04 Sodium 125 L 126 L Potassium 3.7 3.4 L Chloride 88 L 92 L Carbon Dioxide 28 25 Anion Gap 14 12 BUN 12 10 Creatinine 0.8 0.8 Est GFR ( Amer) > 60 > 60 Est GFR (Non-Af Amer) > 60 > 60 Random Glucose 95 146 H Calcium 9.3 8.5 Magnesium 1.5 L Total Bilirubin 0.3 AST 39 H D ALT 39 Alkaline Phosphatase 64 Troponin I < 0.01 Total Protein 6.9 Albumin 4.1 Globulin 2.8 Albumin/Globulin Ratio 1.4 Assessment & Plan - Assessment and Plan (Free Text) Assessment: Patient is a 63 y/o F with a past medical history including hypertension, hyperlipidemia, COPD, PAD, osteoarthritis and anxiety presenting to the ED with left sided rib pain. She states that she initially injured her ribs two weeks ago. She was seen at [facility] at that time and diagnosed with a "bruised rib". Patient is being admitted on telemetry for musculoskeletal chest pain r/o ACS and hyponatremia. Plan: Musculoskeletal Chest Pain r/o ACS r/o rib fracture - Rib series to r/o fx - CXR pending official read - Toradol 15 mg IVP q6 prn - Flexeril 5 mg PO BID - EKG in morning - serial troponins - lipid panel to calculate ASCVD risk score - A1c Hypotonic Hyponatremia - asymptomatic - Na is 125 on admission; repeat Na is 126 - NS at 75 mls/hr; Previous Echo (05/09/18): normal EF - serum osmolarity is 258 - Urine Na - Urine osmolarity - Uric acid to r/o SIADH; significant smoking hx - Fluid restriction - monitor Na level in the morning - Do not overcorrect Sodium more than 4-6 mEq within 24 hours Tobacco Use with 30 Pack Year Hx - consider outpatient low dose CT to screen for lung cancer - counseling provided - consider nicotine patch PAD - recently on ASA/Plavix - follows up with handwriting expert - No signs of acute limb ischemia HTN - normotensive - resume home meds HLD - resume lipitor Anxiety - resume xanax home med COPD - albuterol DVT ppx: heparin sc GI ppx: protonix Dispo: monitor patient on telemetry. Case was discussed and reviewed with Attending Physician, Dr. Enamorado.
[2018-08-06] MEDS ORDERED: Sodium Chloride 0.9% 1,000 ML IV SCH (02:15)
[2018-08-06 02:41] VITALS: O2SAT 97
[2018-08-06] MEDS ORDERED: Pantoprazole 40 mg EC Tab PO SCH (06:00)
[2018-08-06 06:13] VITALS: TEMP 98.4
[2018-08-06 06:51] LABS: HEMOGLOBIN 11.3 g/dL (12.0-16.0); MEAN CELL VOLUME 85.7 fl (80.0-105.0); MEAN CORPUSCULAR HEMOGLOBIN 29.4 pg (25.0-35.0); MEAN CORPUSCULAR HGB CONC 34.2 g/dl (31.0-37.0); MEAN PLATELET VOLUME 10.8 fl (7.0-11.0); RBC 3.85 10^6/uL (3.5-6.1); RED CELL DISTRIBUTION WIDTH 12.8 % (11.5-14.5); WHITE BLOOD COUNT 8.4 10^3/ul (4.5-11.0)
[2018-08-06 07:18] LABS: ALB/GLOB RATIO 1.3 (1.1-1.8); ALBUMIN 3.3 g/dL (3.0-4.8); ALT/SGPT 32 U/L (7-56); AST/SGOT 24 U/L (14-36); BLOOD UREA NITROGEN 12 mg/dL (7-21); CALCIUM 8.4 mg/dL (8.4-10.5); GFR NON-AFRICAN AMERICAN 56; HDL CHOLESTEROL 39 mg/dL (29-60); URIC ACID 3.8 mg/dL (2.5-6.2)
[2018-08-06 07:21] LABS: LDL CHOLESTEROL 59 mg/dL (0-129)
[2018-08-06 07:22] LABS: TROPONIN I < 0.01 ng/mL
[2018-08-06] MEDS ORDERED: Albuterol-Ipratrop 3 mg / 0.5 (3 ml) UD IH SCH (08:00)
--- NOTE | 2018-08-06 10:51 | RAD ---
Date of service: 08/06/2018 PROCEDURE: Radiographs of the left ribs. HISTORY: left sided rib pain COMPARISON: None available. TECHNIQUE: Multiple oblique radiographs of the left ribs were obtained. FINDINGS: LEFT RIBS: No fracture or focal lesion visualized. OTHER FINDINGS: No abnormality of the visualized left hemithorax. IMPRESSION: Unremarkable radiographs of the left ribs. No left rib fracture.
--- NOTE | 2018-08-06 11:26 | CP.PCM.DIS ---
<Shukri Blandon - Last Filed: 08/06/18 11:19> Provider - Provider Date of Admission: 08/06/18 00:22 Attending physician: Cesar Perez MD Primary care physician: PMD: Dr Dian Chilel Time Spent in preparation of Discharge (in minutes): 36 Diagnosis - Discharge Diagnosis (1) Rib pain on left side Status: Suspected Priority: Medium (2) Chest pain Status: Resolved Priority: High (3) Hyponatremia Status: Acute Priority: High Hospital Course - Lab Results Lab Results: Most Recent Lab Values WBC 8.4 10^3/ul (4.5-11.0) D 08/06/18 06:00 RBC 3.85 10^6/uL (3.5-6.1) 08/06/18 06:00 Hgb 11.3 g/dL (12.0-16.0) L 08/06/18 06:00 Hct 33.0 % (36.0-48.0) L 08/06/18 06:00 MCV 85.7 fl (80.0-105.0) 08/06/18 06:00 MCH 29.4 pg (25.0-35.0) 08/06/18 06:00 MCHC 34.2 g/dl (31.0-37.0) 08/06/18 06:00 RDW 12.8 % (11.5-14.5) 08/06/18 06:00 Plt Count 256 10^3/uL (120.0-450.0) 08/06/18 06:00 MPV 10.8 fl (7.0-11.0) 08/06/18 06:00 Gran % 54.1 % (50.0-68.0) 08/05/18 20:15 Lymph % (Auto) 35.5 % (22.0-35.0) H 08/05/18 20:15 [place] % (Auto) 7.7 % (1.0-6.0) H 08/05/18 20:15 Eos % (Auto) 2.3 % (1.5-5.0) 08/05/18 20:15 Baso % (Auto) 0.4 % (0.0-3.0) 08/05/18 20:15 Gran # 5.99 (1.4-6.5) 08/05/18 20:15 Lymph # (Auto) 3.9 (1.2-3.4) H 08/05/18 20:15 [place] # (Auto) 0.9 (0.1-0.6) H 08/05/18 20:15 Eos # (Auto) 0.3 (0.0-0.7) 08/05/18 20:15 Baso # (Auto) 0.04 K/mm3 (0.0-2.0) 08/05/18 20:15 Sodium 127 mmol/L (132-148) L 08/06/18 06:00 Potassium 4.1 mmol/L (3.6-5.0) 08/06/18 06:00 Chloride 95 mmol/L (98-107) L 08/06/18 06:00 Carbon Dioxide 26 mmol/L (21-33) 08/06/18 06:00 Anion Gap 10 (10-20) 08/06/18 06:00 BUN 12 mg/dL (7-21) 08/06/18 06:00 Creatinine 1.0 mg/dl (0.7-1.2) 08/06/18 06:00 Est GFR ( Amer) > 60 08/06/18 06:00 Est GFR (Non-Af Amer) 56 08/06/18 06:00 Random Glucose 92 mg/dL (70-110) 08/06/18 06:00 Serum Osmolality 258 mosm/kg (272-300) L 08/06/18 00:30 Uric Acid 3.8 mg/dL (2.5-6.2) 08/06/18 06:00 Calcium 8.4 mg/dL (8.4-10.5) 08/06/18 06:00 Magnesium 1.5 mg/dL (1.7-2.2) L 08/05/18 20:15 Total Bilirubin 0.3 mg/dL (0.2-1.3) 08/06/18 06:00 AST 24 U/L (14-36) 08/06/18 06:00 ALT 32 U/L (7-56) 08/06/18 06:00 Alkaline Phosphatase 52 U/L (38-126) 08/06/18 06:00 Troponin I < 0.01 ng/mL 08/06/18 06:00 Total Protein 5.9 g/dL (5.8-8.3) 08/06/18 06:00 Albumin 3.3 g/dL (3.0-4.8) 08/06/18 06:00 Globulin 2.6 gm/dL 08/06/18 06:00 Albumin/Globulin Ratio 1.3 (1.1-1.8) 08/06/18 06:00 Triglycerides 81 mg/dL (35-160) 08/06/18 06:00 Cholesterol 122 mg/dL (130-200) L 08/06/18 06:00 LDL Cholesterol Direct 59 mg/dL (0-129) 08/06/18 06:00 HDL Cholesterol 39 mg/dL (29-60) 08/06/18 06:00 - Hospital Course Hospital Course: cc: left sided rib pain HPI: Patient is a 63 y/o F with a past medical history including hypertension, hyperlipidemia, COPD, PAD, osteoarthritis and anxiety presenting to the ED with left sided rib pain. She states that she initially injured her ribs two weeks ago. She was seen at [facility] at that time and diagnosed with a "bruised rib". Earlier this afternoon she was carrying her groceries home when she started to experience pain on the left lateral aspect of her chest, it was not improving. The pain is described as the same pain as two weeks ago and at the same location. Her symptoms are more severe during this admission. She has no pain at rest and experiences worsening pain with movement. The pain does not radiate to the arm, jaw, or back. The pain is described as a sharp and stabbing pain. During this time, she rates the rib pain as 5/10 but when she moves the pain is worse. Denies recent trauma to the area. Pain is not associated with exertion and she has not had a recent decline in functional tolerance. Otherwise, she denies fevers, chills, nausea, vomiting, shortness of breath, lightheadedness, dizziness, diaphoresis, numbness and tingling. No changes in appetite; patient has been drinking adequate fluids- two 16 oz water bottles every day. A full 12 point ROS was conducted and unremarkable except as stated above. In the ED VSS. On BMP, Na is 125 initially (baseline is 135). Repeat Na is 126. K was 3.4. AST/ALT 39/39. Troponin negative x1 EKG NSR @66bpm, normal axis, no acute ST elevations or depressions - normal EKG. CXR pending official read. No acute cardiopulmonary pathology - as ready by commercial loan underwriter. Previous ECHO on 05/09/18 shows normal LVEF, normal ventricular wall thickness/function. Given 1 L NS in ED. Tele for observation. PMD: Dr. Chilel Sort Supervisor: Dr. Tierney GI: Dr. Tubbs Pharm: [facility] [place]. As per prior charting: PMH: HTN, HLD, COPD, OA, anxiety, active smoker, PAD, recent "blockage" on EGD/colonoscopy PSH: Hysterectomy 2/2 endometriosis, polyps removed on colonoscopy Home Meds: ASA 81mg QD, Plavix 75 mg QD, Lisinopril-HCTZ 20-25mg daily, Atorvastatin 10mg daily, Senexon 50mg prn, Vit D 1000mg daily, Albuterol Inhaler, Xanax 0.25 QD PRN Allergies: Penicillin FamHx: Heart disease/ CAD, DM, HTN - both sides of immediate family. Brother from [place] in his 50's. Social Hx: Current smoker w/ 30 pack year hx, EtOH every weekend 4-5 beers, Hx Cocaine use -stopped 6 years ago. Lives at home w/ son independent w /ADLs and ambulation. HOSPITAL COURSE: Acute coronary syndrome was ruled out (trop neg x3, recent echo normal, recent stress test normal, cxr normal, ekg normal) for this patient with chest pain most likely stemming from her left rib pain which she incurred due to leaning on a railing for too long. A rib series xray ruled out any fracture. She was also found to be hyponatremic - she stated she hydrates herself well drinking two 16oz of water daily - thus we concluded her hyponatremia might have been due to hydrochlorothiazide which she started taking just recently. For more specifics on management, please see latest assessment and plan which is pasted below: Musculoskeletal Chest Pain r/o ACS r/o rib fracture - Rib series to r/o fx - CXR pending official read - Toradol 15 mg IVP q6 prn - Flexeril 5 mg PO BID - EKG in morning - serial troponins - lipid panel to calculate ASCVD risk score - A1c Hypotonic Hyponatremia - asymptomatic - Na is 125 on admission; repeat Na is 126 - NS at 75 mls/hr; Previous Echo (05/09/18): normal EF - serum osmolarity is 258 - Urine Na - Urine osmolarity - Uric acid to r/o SIADH; significant smoking hx - Fluid restriction - monitor Na level in the morning - Do not overcorrect Sodium more than 4-6 mEq within 24 hours Tobacco Use with 30 Pack Year Hx - consider outpatient low dose CT to screen for lung cancer - counseling provided - consider nicotine patch PAD - recently on ASA/Plavix - follows up with office clerk assistant - No signs of acute limb ischemia HTN - normotensive - resume home meds HLD - resume lipitor Anxiety - resume xanax home med COPD - albuterol DVT ppx: heparin sc GI ppx: protonix Dispo: monitor patient on telemetry. Discharge Exam - Head Exam Head Exam: ATRAUMATIC, NORMAL INSPECTION, NORMOCEPHALIC - Additional Findings Additional findings: - Constitutional Appears: No Acute Distress - Head Exam Head Exam: ATRAUMATIC, NORMAL INSPECTION, NORMOCEPHALIC - Eye Exam Eye Exam: EOMI, Normal appearance, PERRL Pupil Exam: NORMAL ACCOMODATION, PERRL - ENT Exam ENT Exam: Mucous Membranes Moist, Normal Exam - Neck Exam Neck exam: Positive for: Normal Inspection - Respiratory Exam Respiratory Exam: Clear to Auscultation Bilateral, NORMAL BREATHING PATTERN. absent: Rales, Rhonchi, Wheezes - Cardiovascular Exam Cardiovascular Exam: REGULAR RHYTHM, +S1, +S2. absent: Systolic Murmur Additional comments: No pain with palpation of the left lateral ribcage. - GI/Abdominal Exam GI & Abdominal Exam: Normal Bowel Sounds, Soft. absent: Guarding, Rebound, Rigid, Tenderness - Extremities Exam Extremities exam: Positive for: full ROM, normal inspection, pedal pulses present. Negative for: pedal edema, tenderness - Back Exam Back exam: NORMAL INSPECTION - Skin Skin Exam: Dry, Intact, Normal Color, Warm Discharge Plan - Discharge Medications Prescriptions: RX: Lisinopril [Prinivil] 10 mg PO DAILY #30 tablet RX: Naproxen 250 mg PO Q8H PRN #9 tablet PRN Reason: Pain, Severe (8-10) - Follow Up Plan Condition: FAIR Disposition: HOME/ ROUTINE Instructions: Chest Pain (DC), Hyponatremia (DC) Additional Instructions: Please follow-up with your Primary Medical Doctor within 1 week so she may be aware of this admission. Please continue all your home meds with the EXCEPTION being the lis inopril/hydrochlorothiazide combination pill - please do not take this pill as it might have caused your sodium to decrease. Instead please only take the lisinopril 10mg 1 tablet once a day. A script will be given to you. For your rib pain, please take naproxen 250mg 1 tablet every 8 hours as needed for pain. A script will be given to you. Please stay up to date with all your preventative care measures - including a CT of your chest given your smoking history. Your PMD can help set this up. If symptoms return, go to your nearest emergency department. Referrals: Dian Chilel DO [Family Provider] - <Cesar Perez - Last Filed: 08/06/18 13:13> Provider - Provider Date of Admission: 08/06/18 00:22 Attending physician: Cesar Perez MD Hospital Course - Lab Results Lab Results: Most Recent Lab Values WBC 8.4 10^3/ul (4.5-11.0) D 08/06/18 06:00 RBC 3.85 10^6/uL (3.5-6.1) 08/06/18 06:00 Hgb 11.3 g/dL (12.0-16.0) L 08/06/18 06:00 Hct 33.0 % (36.0-48.0) L 08/06/18 06:00 MCV 85.7 fl (80.0-105.0) 08/06/18 06:00 MCH 29.4 pg (25.0-35.0) 08/06/18 06:00 MCHC 34.2 g/dl (31.0-37.0) 08/06/18 06:00 RDW 12.8 % (11.5-14.5) 08/06/18 06:00 Plt Count 256 10^3/uL (120.0-450.0) 08/06/18 06:00 MPV 10.8 fl (7.0-11.0) 08/06/18 06:00 Gran % 54.1 % (50.0-68.0) 08/05/18 20:15 Lymph % (Auto) 35.5 % (22.0-35.0) H 08/05/18 20:15 [place] % (Auto) 7.7 % (1.0-6.0) H 08/05/18 20:15 Eos % (Auto) 2.3 % (1.5-5.0) 08/05/18 20:15 Baso % (Auto) 0.4 % (0.0-3.0) 08/05/18 20:15 Gran # 5.99 (1.4-6.5) 08/05/18 20:15 Lymph # (Auto) 3.9 (1.2-3.4) H 08/05/18 20:15 [place] # (Auto) 0.9 (0.1-0.6) H 08/05/18 20:15 Eos # (Auto) 0.3 (0.0-0.7) 08/05/18 20:15 Baso # (Auto) 0.04 K/mm3 (0.0-2.0) 08/05/18 20:15 Sodium 127 mmol/L (132-148) L 08/06/18 11:30 Potassium 4.3 mmol/L (3.6-5.0) 08/06/18 11:30 Chloride 95 mmol/L (98-107) L 08/06/18 11:30 Carbon Dioxide 24 mmol/L (21-33) 08/06/18 11:30 Anion Gap 12 (10-20) 08/06/18 11:30 BUN 15 mg/dL (7-21) 08/06/18 11:30 Creatinine 0.9 mg/dl (0.7-1.2) 08/06/18 11:30 Est GFR ( Amer) > 60 08/06/18 11:30 Est GFR (Non-Af Amer) > 60 08/06/18 11:30 Random Glucose 90 mg/dL (70-110) 08/06/18 11:30 Hemoglobin A1c 6.3 % (4.2-6.5) 08/06/18 00:30 Serum Osmolality 258 mosm/kg (272-300) L 08/06/18 00:30 Uric Acid 3.8 mg/dL (2.5-6.2) 08/06/18 06:00 Calcium 8.4 mg/dL (8.4-10.5) 08/06/18 11:30 Magnesium 1.5 mg/dL (1.7-2.2) L 08/05/18 20:15 Total Bilirubin 0.3 mg/dL (0.2-1.3) 08/06/18 06:00 AST 24 U/L (14-36) 08/06/18 06:00 ALT 32 U/L (7-56) 08/06/18 06:00 Alkaline Phosphatase 52 U/L (38-126) 08/06/18 06:00 Troponin I < 0.01 ng/mL 08/06/18 11:30 Total Protein 5.9 g/dL (5.8-8.3) 08/06/18 06:00 Albumin 3.3 g/dL (3.0-4.8) 08/06/18 06:00 Globulin 2.6 gm/dL 08/06/18 06:00 Albumin/Globulin Ratio 1.3 (1.1-1.8) 08/06/18 06:00 Triglycerides 81 mg/dL (35-160) 08/06/18 06:00 Cholesterol 122 mg/dL (130-200) L 08/06/18 06:00 LDL Cholesterol Direct 59 mg/dL (0-129) 08/06/18 06:00 HDL Cholesterol 39 mg/dL (29-60) 08/06/18 06:00 Attending/Attestation - Attestation I have personally seen and examined this patient.: Yes I have fully participated in the care of the patient.: Yes I have reviewed all pertinent clinical information, including history, physical exam and plan: Yes Notes (Text): 08/06/18 13:07 63 year old female with past medical history of hypertension, dyslipidemia, PAD, and smoking history who presented with complaint of left sided chest / ribs pain. She reports recently injury her chest wall while leaning on a recliner few days prior. Then when "carrying groceries may have pulled something." She was admitted to rule out ACS. Serial cardiac enzymes were negative. Rib series xray was negative for fracture. She reports having a recent stress test which was negative as well. She was also found to have hyponatremia. Review of medications revealed newly prescribed HCTZ for hypertension which was held. Sodium has been stable. Recommended to continue to hold HCTZ for now and repeat labs with primary medical doctor. Patient is discharged home to follow up with her pmd. Follow up with office clerk assistant. Hold HCTZ for now; repeat BMP with pmd. Trial on naproxen for chest wall pain. Counselled on smoking and alcohol abstinence. Cesar Perez MD Hospitalist.
[2018-08-06 11:47] LABS: BLOOD UREA NITROGEN 15 mg/dL (7-21); CALCIUM 8.4 mg/dL (8.4-10.5); GFR NON-AFRICAN AMERICAN > 60
[2018-08-06 11:54] LABS: TROPONIN I < 0.01 ng/mL
[2018-08-06 12:47] VITALS: BP 128/68; PULSE 62; RESP 20
[2018-08-06 13:08] LABS: BENZODIAZEPINES, UR NEGATIVE (NEGATIVE)
[2018-08-06 13:13] LABS: BARBITURATES, UR NEGATIVE (NEGATIVE); OPIATES, UR NEGATIVE (NEGATIVE); PHENCYCLIDINE, UR NEGATIVE (NEGATIVE)
[2018-08-06 13:23] LABS: OSMOLALITY,URINE 595 mosm/kg (300-1000)
--- NOTE | 2018-08-06 15:24 | CARD ---
APPROVED REPORT Date of service: 08/05/2018 EKG Measurement Heart [id number] <Conclusion> Normal sinus rhythm Normal ECG
--- NOTE | 2018-08-06 17:01 | RAD ---
Date of service: 08/05/2018 HISTORY: cp COMPARISON: 05/07/2018 FINDINGS: LUNGS: No active pulmonary disease. PLEURA: No significant pleural effusion identified, no pneumothorax apparent. CARDIOVASCULAR: Normal. OSSEOUS STRUCTURES: No significant abnormalities. VISUALIZED UPPER ABDOMEN: Normal. OTHER FINDINGS: None. IMPRESSION: No active disease.
== END 2018-08-06 14:09 | disposition home or self-care (01) ==
LOC: ED 18:38 → ERH 08-06 00:22 → 2RNO 08-06 02:16
PROVIDERS: ADMIT Internal Medicine; ATTEND Internal Medicine
DX: R07.89 Other chest pain (principal); R07.81 Pleurodynia; E87.1 Hypo-osmolality and hyponatremia; I10 Essential (primary) hypertension; J44.9 Chronic obstructive pulmonary disease, unspecified; E78.5 Hyperlipidemia, unspecified; F41.9 Anxiety disorder, unspecified; I73.9 Peripheral vascular disease, unspecified; K21.9 Gastro-esophageal reflux disease without esophagitis; Z87.891 Personal history of nicotine dependence
CPT/HCPCS: 36415; 71045; 71100; 80053; 80061; 80324; 80345; 80346; 80349; 80353; 80358; 80361; 83036; 83735; 83930; 83935; 83992; 84300; 84484; 84550; 85025; 85027; 93005; 94640; 96372; 96374; 96375; 99285; G0378; J1644; J1885; J3475; J7030